=== PATIENT | female | born 1950 | race Caucasian/White ===

== ENCOUNTER → 2018-07-13 14:48 | Outpatient (CLI) | payer BC, MEDICARE, SELFPAY ==
--- NOTE | 2018-07-13 15:01 | XR_ITS ---
XR DEXA axial skeleton HISTORY: ITS.REASON: OSTEOPAROSIS ORDERING PHYSICIAN: Lacy Owens PATIENT AGE: 67 years COMPARISON: 06/29/2014 FINDINGS: The BMD measured at the Right femoral neck is 0.734 g/cm squared with a T score of -2.2. This is considered Osteopenic according to the World Health Organization criteria. Fracture risk is Moderate. Treatment is advised. L1 L4 density has a T score of -1.5. The density has increased by 3.7%. The mean density of the hip has decreased by 1.8% IMPRESSION: Osteopenia with moderate fracture risk. Suggest treatment and follow-up exam July 2020
== END ==
PROVIDERS: PCP Internal Medicine Adolescent Medicine; Visit Provider Nurse Practitioner Family
DX: M81.0 Age-related osteoporosis without current pathological fracture (principal)
CPT/HCPCS: 77080

== ENCOUNTER 2019-08-16 10:30 | Inpatient (IN) ==
--- NOTE | 2019-08-16 11:01 | Emergency Department Note ---
ED Disposition Clinical Impression: Hx of fall Injury of right thigh Qualifiers: Encounter type: initial encounter Qualified Code(s): S79.921A - Unspecified injury of right thigh, initial encounter Intertrochanteric fracture of right femur Qualifiers: Encounter type: initial encounter Fracture type: closed Fracture alignment: displaced Qualified Code(s): S72.141A - Displaced intertrochanteric fracture of right femur, initial encounter for closed fracture Disposition: Admitted As Inpatient Condition on Discharge: Fair Referrals: Gabriel Dodson MD [Primary Care Provider] - Time of Disposition: 12:28 - Critical Care Critical Care Time: Yes Attestation: On 08/16/19, the high probability of a clinically significant, sudden or life threatening deterioration of the following system(s) required my full and direct attention, intervention and personal management. The time I documented below is in addition to time spent performing reported procedures but includes the f ollowing listed in this critical care notation. Total Critical Care Time: 30 Vital system(s) involved:: Shock (Hemorrhage) My critical care processes included: Assessment & monitoring of V/S, Initial and Re-exams, Data Review/Interpretation, Coordinating Care, Medication Orders and management, Documentation Medical Decision Making - Sanchez Inquiry Pt receiving controlled substance: No Vital Signs: 08/16/19 10:30 08/16/19 11:00 08/16/19 12:15 Temperature 97.9 F 98.5 F Temperature Source Oral Oral Pulse Rate [Right Radial] 84 78 91 H Respiratory Rate 18 20 Blood Pressure [Right Arm] 161/78 H 149/71 H 144/60 H Blood Pressure Mean [Right Arm] 105 97 88 Blood Pressure Source [Right Arm] Automatic Cuff Automatic Cuff Blood Pressure Position [Right Arm] Sitting Sitting 02 Sat by Pulse Oximetry 98 99 98 Oxygen Delivery Method Room Air Room Air - Lab Data Lab results reviewed: Yes: I reviewed the patient's lab results. Orders (Tests/Meds): ED MEDICATIONS Discontinued Medications Generic Name Dose Route Start Last Admin Trade Name Freq PRN Reason Stop Dose Admin Hydromorphone HCl 1 mg 08/16/19 11:36 08/16/19 11:45 Dilaudid 2mg/Ml Syringe IV 08/16/19 11:37 1 mg ONCE ONE Administration Morphine Sulfate 2 mg 08/16/19 10:38 08/16/19 10:41 Morphine 2mg/Ml Syringe IV 08/16/19 10:39 2 mg ONCE ONE Administration Ondansetron HCl 4 mg 08/16/19 10:39 08/16/19 10:41 Zofran 4mg/2ml Vial IV 08/16/19 10:40 4 mg ONCE ONE Administration Ondansetron HCl 4 mg 08/16/19 11:36 08/16/19 11:45 Zofran 4mg/2ml Vial IV 08/16/19 11:37 4 mg ONCE ONE Administration ORDERS Category Date Time Status XR femur RT 2V Stat Exams 08/16/19 10:32 Taken XR hip RT 2-3V w/pelvis Stat Exams 08/16/19 10:32 Taken Trop I [Troponin I] Stat Lab 08/16/19 12:05 Received ECG Request by /Felicity Stat Y 08/16/19 11:05 Ordered - Radiology Data #1 Image(s): Hip Image Reviewed: Yes I reviewed the patient's radiology image X-ray of the right hip shows intertrochanteric fracture of the right femur. #2 Image(s): Femur Image Reviewed: Yes I reviewed the patient's radiology image X-ray after right femur shows intertrochanteric fracture with angulation. - Physician Consults Physician Consulted: Dr. Contreras Time: 12:15 Reason -: Orthopedic Eval/Care Comment/Response: Discussed with Dr. Contreras, the orthopedic on-call, regarding the patient and plan to get the patient admitted to the floor under the hospitalist service for possible surgery this afternoon. Advised pt to be NPO today. Additional Consult: Dr. Dodson Time: 12:20 Reason -: Admission Comment/Response: Discussed with Dr. Dodson, the patient's primary care provider, regarding the patient and planned to get the patient admitted to the floor. - Reevaluation(s) Time: 12:00 Reevaluation #1: Patient has been stable throughout the course of stay in the emergency department. Discussed the x-ray findings with the patient. Plan to discuss the case with orthopedic consult for orthopedic surgery and admission. Time: 12:25 Reevaluation #3: Advised patient not to be eating or drinking anything today. Plan to admit the patient to the floor. Fall HPI - General Chief Complaint: Fall Stated Complaint: fall, R thigh pain Time Seen by Provider: 08/16/19 11:01 Mode of Arrival: EMS Limitations: No Limitations Description of Symptoms (Recalled from ER Triage Doc. by RN): Pt was walking across the parking lot at her work when she slipped on ice and fell. Pt reports she landed on her R side. Pt c/o pain in R lateral thigh area. Redness and swelling noted to R lateral thigh area. - History of Present Illness HPI Narrative: Next a 8-year-old female was walking on the parking lot at her workplace when she slipped on the ice and fell on the right side. She hurt her right thigh area. Denies having any head injury. Denies having any neck injury. Denies having any back injury. Denies having any chest pain. Denies having any nausea or vomiting. Denies having any shortness of breath. Denies any loss of consciousness or any other symptoms. MD complaint: fall Onset (ago): hour(s) (2) Fall from: standing Fall witnessed: no Place fall occurred: work Loss of consciousness: none Prolonged down time: no Symptoms prior to fall: none Context: tripped/slipped (slipped on ice.) Location of injury: other (lower extremity on the right) Location of injury - extremities: Right: thigh Severity: severe Severity scale (1-10): 8 Quality: sharp Associated symptoms (after fall): denies - Related Data Home Medications Medication Instructions Recorded Confirmed Amlodipine Besylate [Norvasc 2.5mg 5 mg PO DAILY 08/16/19 08/16/19 tablet] Aspirin [Aspirin 81mg EC Tab] 81 mg PO DAILY 08/16/19 08/16/19 Levothyroxine Sodium 125 mcg PO DAILY 08/16/19 08/16/19 [Levothyroxine 125mcg (0.125mg) Tab] Allergies Allergy/AdvReac Type Severity Reaction Status Date / Time ciprofloxacin [From CIPRO] Allergy Mild Unverified 08/24/17 14:44 erythromycin base Allergy Mild Unverified 08/24/17 14:44 [ERYTHROMYCIN BASE] Sulfa (Sulfonamide Allergy Mild Unverified 08/24/17 14:44 Antibiotics) [SULFA (SULFONAMIDE ANTIBIOTICS)] [facility] History - Hepatitis A Screen Drug use history?: No High risk sexual behaviors?: No History of sexually transmitted infection?: No Currently employed?: No Childcare worker?: No Do you have indoor plumbing?: Yes Do you have electricity?: Yes Attestation statement:: This patient has been screened for Hepatitis A risk factors. Medical History: Denies:: Diabetes Mellitus Type 1, Diabetes Mellitus Type 2 - Social History Alcohol Intake: current Alcohol Intake Frequency:: holidays/special occasions only Occupational Status: employed ROS Obtained: Yes All systems reviewed & no additional complaints Physical Exam - General General appearance: alert, in no apparent distress - Head Head exam: atraumatic, normocephalic, normal inspection - Eye Eye exam: Present: normal appearance, PERRL, EOMI - ENT ENT exam: Present: normal exam, normal oropharynx, mucous membranes moist, normal external ear exam - Neck Neck exam: Present: normal inspection, full ROM, trachea midline - Chest Chest inspection: Present: normal inspection, symmetric chest wall rise. Absent: tenderness - Respiratory Respiratory exam: Present: normal lung sounds bilaterally. Absent: respiratory distress - Cardiovascular Cardiovascular exam: Present: regular rate, normal rhythm. Absent: JVD - Abdominal Exam Abdominal exam: Present: soft, normal bowel sounds. Absent: distention, tenderness, guarding - Extremities Exam Extremities exam: Present: normal inspection, full ROM, normal capillary refill. Absent: calf tenderness - Expanded Lower Extremity Exam Right Hip/Pelvis exam: Present: tenderness (Tenderness on the lower part of the right hip.) Upper leg exam: Present: tenderness (Numbness on the right lateral aspect of the hip and the thigh area.), ecchymosis (Mild ecchymosis on the lateral aspect of the right thigh on the midshaft area.) Lower leg exam: Present: normal inspection, full ROM. Absent: tenderness, swelling Ankle exam: Present: normal inspection, full ROM. Absent: tenderness, swelling Foot/toe exam: Present: normal inspection, full ROM. Absent: tenderness, swelling - Back Exam Back exam: Present: normal inspection. Absent: tenderness - Neurological Exam Neurological exam: Present: alert, oriented X3, CN II-XII intact - Psychiatric Psychiatric exam: Present: normal affect, normal mood - Skin Skin exam: Present: warm, dry, intact, normal color
[2019-08-16 12:32] LABS: Basophils % 0.2 % (0.1-2.0); Eosinophils % 0.3 % (0.1-12.0); Hematocrit 41.1 % (37.0-47.0); Hemoglobin 13.7 g/dL (12.2-16.2); Lymphocytes # 0.8 K/mm3 (0.7-4.5); Lymphocytes % 7.5 % (10-50); Mean Corpuscular HGB Conc 33.5 g/dL (31.8-35.4); Mean Corpuscular Volume 88.9 fl (81-99); Mean Platelet Volume 8.9 fl (7.4-10.4); Monocytes # 0.2 K/mm3 (0.1-1.0); Monocytes % 2.3 % (1.7-9.3); Neutrophils # 9.5 K/mm3 (1.8-7.8); Neutrophils % 89.7 % (37.0-80.0); Platelet Count 193 K/mm3 (142-424); Red Blood Count 4.62 M/mm3 (4.20-5.40); Red Cell Distribution Width 12.9 % (11.5-17.5); White Blood Count 10.6 K/mm3 (4.8-10.8)
[2019-08-16 12:38] LABS: Albumin Level 3.7 gm/dL (3.4-5.0); Albumin/Globulin Ratio 1.3 (1.1-1.8); Anion Gap 13.8 mEq/L (5-15); Bilirubin,Total 0.3 mg/dL (0.2-1.0); Calcium 8.3 mg/dL (8.5-10.1); Globulin 2.9 gm/dl (1.3-3.2); Total Protein,Serum 6.6 gm/dL (6.4-8.2)
[2019-08-16 12:41] LABS: Eosinophils % 1 % (0-3); Lymphocytes % 11 % (10-50); Monocytes % 3 % (2-9); Neutrophils % 85 % (42-76); RBC Morphology Normal; Total Cells Counted 100
[2019-08-16 13:03] LABS: Microscopic, Urine URINE MICROSCOPIC (MICROSCOPIC)
[2019-08-16 13:04] LABS: Appearance,Urine CLEAR (Clear); Bilirubin,Urine Negative (Negative); Blood, Urine Negative (Negative); Color,Urine YELLOW (Yellow); Glucose,Urine (UA) Negative (Negative); Ketones,Urine Negative (Negative); Leukocyte Esterase,Urine Negative (Negative); PH,Urine 7.5 (5.0-8.5); Protein,Urine Negative (Negative); Specific Gravity, Urine 1.015 (1.005-1.030); Urobilinogen,Urine 0.2 EU/dl (0.2)
[2019-08-16 13:08] LABS: RBC,Urine Occasional #/hpf (0-3); Squamous Epithelial Cell,Urine Occasional #/hpf (0-5)
--- NOTE | 2019-08-16 13:36 | History & Physical Report ---
*Admission Date: 08/16/19 *Chief complaint: Fall with right hip fracture *History of present illness: 68-year-old healthy white female with essential hypertension-normally well controlled-who was outside her workplace today trimming some bushes and slipped on a patch of ice and fell down, striking her right hip, unable to walk, significant pain. Brought to the emergency department where x-rays demonstrated trochanteric fracture. Admitted to hospital for surgical intervention. Denies palpitations, dyspnea, chest pain. Denies recent functional decline issues. Reports mechanical fall, no issues of syncope or presyncope [facility] History I have reviewed the patient's past medical history: Yes Medical History: Reports:: Hypertension Denies:: Diabetes Mellitus Type 1, Diabetes Mellitus Type 2 *Have you ever received a pneumonia vaccine?: No *Have you received a flu vaccine this season?: Yes Other Medical History: Reports: Hypothyroidism - *Social History Educational Level: Completed Graduate School Smoking Status: Never smoker Alcohol Intake: current Alcohol Intake Frequency:: holidays/special occasions only *Occupational Status:: employed *Travel in the last 8 weeks: None Family Hx:: No significant family history Review of Systems - Review of Systems Review of systems:: pertinent systems reviewed and negative unless documented below Plan pain from fracture patient denies bony pain or arthritis pain Otherwise 10 point review of systems negative. Meds Home Medications Medication Instructions Recorded Confirmed Type Amlodipine Besylate [Norvasc 2.5mg 5 mg PO DAILY 08/16/19 08/16/19 History tablet] Aspirin [Aspirin 81mg EC Tab] 81 mg PO DAILY 08/16/19 08/16/19 History Levothyroxine Sodium 125 mcg PO DAILY 08/16/19 08/16/19 History [Levothyroxine 125mcg (0.125mg) Tab] Allergies Allergy/AdvReac Type Severity Reaction Status Date / Time ciprofloxacin [From CIPRO] Allergy Mild Verified 08/16/19 12:49 erythromycin base Allergy Mild Verified 08/16/19 12:49 [ERYTHROMYCIN BASE] Sulfa (Sulfonamide Allergy Mild Verified 08/16/19 12:49 Antibiotics) [SULFA (SULFONAMIDE ANTIBIOTICS)] Exam Vital signs and Labs for Last 24 Hours: Temp Pulse Resp BP Pulse Ox 98.2 F 88 18 149/77 H 98 08/16/19 13:10 08/16/19 13:10 08/16/19 13:10 08/16/19 13:10 08/16/19 12:15 Laboratory Results - last 24 hr 08/16/19 12:05: Troponin I < 0.02 08/16/19 12:05: WBC 10.6, RBC 4.62, Hgb 13.7, Hct 41.1, MCV 88.9, MCH 29.8, MCHC 33.5, RDW 12.9, Plt Count 193, MPV 8.9, Neut % (Auto) 89.7 H, Lymph % (Auto) 7.5 L, [place] % (Auto) 2.3, Eos % (Auto) 0.3, Baso % (Auto) 0.2, Neut # (Auto) 9.5 H, Lymph # (Auto) 0.8, [place] # (Auto) 0.2, Eos # (Auto) 0.0, Baso # (Auto) 0.0, Total Counted 100, Neutrophils % (Manual) 85 H, Lymphocytes % (Manual) 11, Monocytes % (Manual) 3, Eosinophils % (Manual) 1, Platelet Estimate Normal, RBC Morphology Normal 08/16/19 12:05: Sodium 141, Potassium 3.8, Chloride 106, Carbon Dioxide 25, Anion Gap 13.8, BUN 26 H, Creatinine 0.85, Estimated Creat Clear 65, Estimated GFR 67, Est GFR ( Amer) 81, Glucose 131 H, Calcium 8.3 L, Total Bilirubin 0.3, AST 14 L, ALT 22, Alkaline Phosphatase 52, Total Protein 6.6, Albumin 3.7, Globulin 2.9, Albumin/Globulin Ratio 1.3 08/16/19 13:00: Urine Color Yellow, Urine Appearance Clear, Urine pH 7.5, Ur Specific [place] 1.015, Urine Protein Negative, Urine Glucose (UA) Negative, Urine Ketones Negative, Urine Blood Negative, Urine Nitrate Negative, Urine Bilirubin Negative, Urine Urobilinogen 0.2, Ur Leukocyte Esterase Negative, Urine RBC Occasional, Urine WBC None, Ur Squamous Epith Cells Occasional, Urine Bacteria None I & O for Last 24 hours: Intake & Output 08/14/19 08/15/19 08/16/19 08/17/19 11:59 11:59 11:59 11:59 Weight 165 lb - Constitutional no acute distress, average body habitus - *Routine HEENT Exam Head: Present: normocephalic Eye: Present: EOMI, PERRL ENT: Present: mucous membranes moist - *Routine Neck Exam Present: supple. Absent: lymphadenopathy - *Routine Respiratory Exam Present: CTA bilaterally - *Routine Cardiovascular Exam Present: RRR - *Routine Abdominal Exam Present: soft, normoactive bowel sounds. Absent: tenderness - *Routine Extremities Exam Absent: cyanosis, clubbing, edema Comments: Right leg foreshortened and rotated consistent with injury pattern - *Routine Skin Exam Present: warm. Absent: rash - *Routine Neurological Exam Present: alert, oriented X3, CN II-XII intact Assessment and Plan (1) Hypertension, essential Current visit: Yes Status: Acute Category: Medical Code(s): I10 - [place] tial (primary) hypertension Good control, no contraindication to surgery. (2) Hypothyroidism Current visit: Yes Status: Acute Category: Medical Code(s): E03.9 - Hypothyroidism, unspecified Euthyroid (3) Hx of fall Current visit: Yes Status: Acute Category: Medical Code(s): Z91.81 - History of falling (4) Intertrochanteric fracture of right femur Current visit: Yes Status: Acute Qualifiers: Encounter type: initial encounter Fracture type: closed Fracture alignment: displaced Qualified Code(s): S72.141A - Displaced intertrochanteric fracture of right femur, initial encounter for closed fracture Category: Medical Code(s): S72.141A - Displaced intertrochanteric fracture of right femur, initial encounter for closed fracture Agree with operative management. No contraindications to surgery. Low risk status.
--- NOTE | 2019-08-16 14:08 | Progress Note ---
[facility] Anesthesia Checklist - Patient Identification Patient Identification: Arm Band, Verbal (Name & ) - Structural Data Admitted From: Inpatient Planned Operative Procedure/s: gamma nail Consent for Planned Operative Procedure(s) Verified: Yes Verified Documents: History and Physical - NPO Status Verified Time NPO: 08:00 - Chart Verification Results Verified: CBC, BMP - Additional verifications Patient : No Anesthesia Reactions: No Hx Blood Transfusions: No Blood Transfusion Reaction: No Cephalosporin Allergy: No Previous Colonoscopy: No - Cardiovascular Assessment Heart Sounds: S1 & S2 Pulse Strength: Baseline Pulse Rhythm: Regular Peripheral Edema: No - Airway Assessment C-Spine Mobility Assessed: Yes TMJ Mobility Assessed: Yes Dentition: Good Dentition - Neurological Assessment Level of Consciousness: Awake, Alert, Appropriate Hx Seizures: No Numbness or tingling in extremities: No - Anesthesia Plan Anesthesia Risk discussed: Yes Anesthesia Plan: Verified ASA Class: II Anesthesia Type: Spinal [facility] History I have reviewed the patient's past medical history: Yes Medical History: Reports:: Hypertension Denies:: Diabetes Mellitus Type 1, Diabetes Mellitus Type 2 *Have you ever received a pneumonia vaccine?: No *Have you received a flu vaccine this season?: Yes Other Medical History: Reports: Hypothyroidism Anesthesia experience/problems:: none - *Social History Educational Level: Completed Graduate School Smoking Status: Never smoker Alcohol Intake: current Alcohol Intake Frequency:: holidays/special occasions only Substance Use Type: other *Occupational Status:: employed *Travel in the last 8 weeks: None Family Hx:: No significant family history
--- NOTE | 2019-08-16 14:20 | Consult Report ---
*Admission Date: 08/16/19 *Reason for consult:: Intertrochanteric fracture, right femur *History of present illness: Seen in the ER for orthopedic consultation; patient's present at the bedside. Patient is a 68-year-old relatively healthy healthy white female with history of well-controlled hypertension, hypothyroidism and osteopenia was brought to the emergency department with history of right hip injury. Patient says she fell after slipping on a patch of ice while walking in the parking lot at her workplace. Following the injury she had severe pain over the right proximal thigh and could not get up and walk. Evaluation in the ER including x-rays demonstrated a comminuted and displaced intertrochanteric fracture of the right proximal femur. Patient is being admitted to hospital for further management. Patient denies any dizziness, headache, chest or neck pain. She denies loss of consciousness, chest pain and shortness of breath. She reports no other injuries. Normally she is mobile and independent and does not use any walking aids. She says she was diagnosed with osteopenia in the past and is on treatment for osteoporosis. She lives with her . Review of Systems - Review of Systems Review of systems:: pertinent systems reviewed and negative unless documented below - Constitutional Denies anorexia, Denies fever(s), Denies headache(s) - Eyes Denies blurry vision, Denies change in vision - ENT Denies abnormal hearing, Denies difficulty swallowing - *Cardiovascular Denies chest pain, Denies shortness of breath - *Respiratory Denies cough, Denies shortness of breath - *Gastrointestinal Denies abdominal pain, Denies change in bowel habits - *Musculoskeletal Reports joint pain, Reports limited joint movement - *Neurologic Denies abnormal movements, Denies abnormal speech, Denies seizure-like activity, Denies dizziness, Denies frequent falls, Denies lack of coordination [facility] History I have reviewed the patient's past medical history: Yes Medical History: Reports:: Hypertension Denies:: Diabetes Mellitus Type 1, Diabetes Mellitus Type 2 *Have you ever received a pneumonia vaccine?: No *Have you received a flu vaccine this season?: Yes Other Medical History: Reports: Hypothyroidism - *Social History Educational Level: Completed Graduate School Smoking Status: Never smoker Alcohol Intake: current Alcohol Intake Frequency:: holidays/special occasions only *Occupational Status:: employed *Travel in the last 8 weeks: None Family Hx:: No significant family history Meds Home Medications Medication Instructions Recorded Confirmed Type Alendronate Sodium 70 mg PO WEEKLY 08/16/19 08/16/19 History Amlodipine Besylate [Norvasc 2.5mg 5 mg PO DAILY 08/16/19 08/16/19 History tablet] Aspirin [Aspirin 81mg EC Tab] 81 mg PO DAILY 08/16/19 08/16/19 History Calcium Carb, Citrate/Vit D3 1 each PO DAILY 08/16/19 08/16/19 History [Calcium + D3 ER Tablet] Levothyroxine Sodium 125 mcg PO DAILY 08/16/19 08/16/19 History [Levothyroxine 125mcg (0.125mg) Tab] Lifitegrast [Xiidra] 1 each OP BID 08/16/19 08/16/19 History Allergies Allergy/AdvReac Type Severity Reaction Status Date / Time ciprofloxacin [From CIPRO] Allergy Mild Verified 08/16/19 12:49 erythromycin base Allergy Mild Verified 08/16/19 12:49 [ERYTHROMYCIN BASE] Sulfa (Sulfonamide Allergy Mild Verified 08/16/19 12:49 Antibiotics) [SULFA (SULFONAMIDE ANTIBIOTICS)] Exam Vital signs and Labs for Last 24 Hours: Temp Pulse Resp BP Pulse Ox 98.2 F 88 18 149/77 H 98 08/16/19 13:10 08/16/19 13:10 08/16/19 13:10 08/16/19 13:10 08/16/19 12:15 Laboratory Results - last 24 hr 08/16/19 12:05: Troponin I < 0.02 08/16/19 12:05: WBC 10.6, RBC 4.62, Hgb 13.7, Hct 41.1, MCV 88.9, MCH 29.8, MCHC 33.5, RDW 12.9, Plt Count 193, MPV 8.9, Neut % (Auto) 89.7 H, Lymph % (Auto) 7.5 L, [place] % (Auto) 2.3, Eos % (Auto) 0.3, Baso % (Auto) 0.2, Neut # (Auto) 9.5 H, Lymph # (Auto) 0.8, [place] # (Auto) 0.2, Eos # (Auto) 0.0, Baso # (Auto) 0.0, Total Counted 100, Neutrophils % (Manual) 85 H, Lymphocytes % (Manual) 11, Monocytes % (Manual) 3, Eosinophils % (Manual) 1, Platelet Estimate Normal, RBC Morphology Normal 08/16/19 12:05: Sodium 141, Potassium 3.8, Chloride 106, Carbon Dioxide 25, Anion Gap 13.8, BUN 26 H, Creatinine 0.85, Estimated Creat Clear 65, Estimated GFR 67, Est GFR ( Amer) 81, Glucose 131 H, Calcium 8.3 L, Total Bilirubin 0.3, AST 14 L, ALT 22, Alkaline Phosphatase 52, Total Protein 6.6, Albumin 3.7, Globulin 2.9, Albumin/Globulin Ratio 1.3 08/16/19 13:00: Urine Color Yellow, Urine Appearance Clear, Urine pH 7.5, Ur Specific [place] 1.015, Urine Protein Negative, Urine Glucose (UA) Negative, Urine Ketones Negative, Urine Blood Negative, Urine Nitrate Negative, Urine Bilirubin Negative, Urine Urobilinogen 0.2, Ur Leukocyte Esterase Negative, Urine RBC Occasional, Urine WBC None, Ur Squamous Epith Cells Occasional, Urine Bacteria None I & O for Last 24 hours: Intake & Output 08/14/19 08/15/19 08/16/19 08/17/19 11:59 11:59 11:59 11:59 Weight 165 lb - Constitutional no acute distress, cooperative - *Routine HEENT Exam Head: Present: normocephalic, atraumatic Eye: Present: EOMI ENT: Present: mucous membranes moist - *Routine Neck Exam Present: supple, full ROM, trachea midline. Absent: lymphadenopathy - *Routine Respiratory Exam Present: CTA bilaterally. Absent: respiratory distress - *Routine Cardiovascular Exam Present: RRR, Normal S1, Normal S2 - *Routine Abdominal Exam Present: soft, normoactive bowel sounds. Absent: organomegaly - *Routine Extremities Exam Comments: On examination of her lower extremities, there is shortening of the RIGHT leg and the foot is externally rotated. On examination of the RIGHT hip the skin is normal. No rashes or lesions noted. She is tender over the RIGHT hip. Any attempted movements of the RIGHT hip are painful. Thigh and calf are soft and nontender. Dorsalis pedis and posterior tibial pulses are palpable 2+ bilaterally. Sensation is grossly intact. She has good range of foot, ankle and toe movements. Imaging: X-rays of her pelvis AP view, RIGHT hip AP and lateral views and RIGHT femur AP and lateral views are showing a comminuted, displaced, unstable intertrochanteric fracture of the RIGHT proximal femur. Hip joint is fairly well-preserved. Her distal femur appears normal. - Routine Back/Spine/Pelvis Exam Back/Spine: Absent: CVA tenderness, vertebral tenderness - *Routine Skin Exam Present: intact, warm, normal turgor - *Routine Neurological Exam Present: alert, oriented X3, CN II-XII intact - Routine Psychiatric Exam Present: normal affect, cooperative Results - Labs Result Diagrams: 08/16/19 12:05 08/16/19 12:05 Labs: Abnormal lab results 08/16/19 08/16/19 Range/Units 12:05 12:05 Neut % (Auto) 89.7 H (37.0-80.0) % Lymph % (Auto) 7.5 L (10-50) % Neut # (Auto) 9.5 H (1.8-7.8) K/mm3 Neutrophils % (Manual) 85 H (42-76) % BUN 26 H (7-18) mg/dL Glucose 131 H (74-106) mg/dL Calcium 8.3 L (8.5-10.1) mg/dL AST 14 L (15-37) U/L H & H 08/16/19 Range/Units 12:05 Hgb 13.7 (12.2-16.2) g/dL Hct 41.1 (37.0-47.0) % All other labs normal. - Diagnostic results Hip x-ray: image reviewed Assessment and Plan (1) Hypertension, essential Current visit: Yes Status: Acute Category: Medical Code(s): I10 - Esse ntial (primary) hypertension (2) Hypothyroidism Current visit: Yes Status: Acute Category: Medical Code(s): E03.9 - Hypothyroidism, unspecified (3) Hx of fall Current visit: Yes Status: Acute Category: Medical Code(s): Z91.81 - History of falling (4) Intertrochanteric fracture of right femur Current visit: Yes Status: Acute Qualifiers: Encounter type: initial encounter Fracture type: closed Fracture alignmen t: displaced Qualified Code(s): S72.141A - Displaced intertrochanteric fracture of right femur, initial encounter for closed fracture Category: Medical Code(s): S72.141A - Displaced intertrochanteric fracture of right femur, initial encounter for closed fracture - Assessment and plan all Dx Assessment and Plan for all problems:: I have reviewed the clinical and imaging findings with the patient and her who was with her in the ER. I have discussed the diagnosis, natural history and management options in detail including both nonsurgical and surgical. I have recommended surgical remediation in the form of a femoral nailing (cephalo-medullary nailing). I explained the procedure, risks and benefits, alternatives and the expected postoperative course and outcome. I explained to the patient and her family the type of the fracture and the proposed surgical procedure using copies of the x-rays, pictures from the Internet and drawings. The complications discussed include but are not limited to infection, bleeding, injury to nerves and blood vessels, DVT, PE, screw cut- out/implant failure, loss of fixation, nonunion, malunion/malrotation, osteonec rosis of the femoral head, femoral shaft fracture, painful hardware, heterotopic ossification, stiffness, weakness, incomplete relief of pain, incomplete return of function or motion and the likely need for further surgery in future, and anesthetic/medical complications including heart attack, stroke, transfusion reaction or . We discussed how any of these events can be devastating. I've explained that the patient is at a significant surgical risk due to her age, medical comorbidities and fragility of the bone. Family and patient seemed to understand and accept these risks. We have discussed nonsurgical alternatives as well. The nonoperative management would essentially consist of prolonged bed rest and traction (skeletal/skin) in bed and pain medication and has exceptionally poor outcome. This could result in nonunion and malunion of the fracture and almost certainly, the patient has a very high risk of decubitus ulcers, UTI, respiratory tract infections, DVT/PE and other complications from being bedridden. I have explained to them that the standard of care for this sort of injuries is surgical throughout the country unless the patient is very ill for surgical management. We also discussed the postoperative course including the rehab and physical therapy required. All their questions were answered and they verbalized a good understanding. We will await medical clearance by Dr. De La Garza team. Well also obtain a preoperative anesthetic evaluation. The limb was marked appropriately and initialed by me. I have recommended- Type and screen Continue nothing by mouth Continue IV fluids Analgesia as needed Consent patient for a cephalo-medullary nailing RIGHT hip. Order 2 g of IV Ancef for preoperative prophylaxis to start half an hour before surgery I am planning to take her for surgery at the earliest opportunity today. Continue medical management as per Dr. Dodson. Thank you for the opportunity to take part in the care of this very pleasant patient.
--- NOTE | 2019-08-16 18:33 | Progress Note ---
[facility] Anesthesia Record Part II Discharge Time: 18:55 Destination: Medical Surgical Department PACU nurse assessment reviewed?: Yes Patient Condition:: Good Anesthesia Complications:: None Swallowing reflex intact?: Yes Cyanosis?: No
--- NOTE | 2019-08-16 18:33 | Progress Note ---
[facility] Anesthesia Record Part I Intake, IV Amount: 900 Estimated blood loss (mL): 150 Urine output (mL): 0 (nm) Blood Products used (#): none Blood Pressure: 156/71 SaO2: 95 Pulse Rate: 111 Respiratory Rate: 17 Temperature: 98.4 F Patient is:: Awake, Drowsy, Stable Stable to PACU at:: 18:25
--- NOTE | 2019-08-16 19:13 | Operative Note ---
Date of procedure: 08/16/19 Pre-op Diagnosis:: Closed, comminuted, displaced and unstable intertrochanteric fracture, right femur Post-op Diagnosis:: Same Procedure performed:: Closed reduction and cephalo-medullary nailing for intertrochanteric fracture, right femur Surgeon:: Jones Contreras MD MANAGER ADVANCED:: Skinny Soares Anesthesia: spinal Estimated blood loss (mL): 150 Clinical Note:: Patient is a 68-year-old female who had a mechanical fall sustaining an injury to her RIGHT hip today. Following evaluation in the emergency room where x-ray showed a displaced, comminuted and unstable intertrochanteric fracture of the RIGHT proximal femur, patient was admitted for further management. After evaluating the patient, I have discussed the diagnosis and management options in detail including nonsurgical and surgical, with the patient and her . Prior to the injury patient was active and mobile independently. After a detailed discussion with the patient and her a decision was made to fix the fracture internally with a cephalo-medullary nail. I have discussed the procedure, risks and benefits, postoperative recovery and rehabilitation and the expected outcomes. The complications discussed include but are not limited to DVT, PE, infection, bleeding, injury to nerves and blood vessels, screw cut- out/implant failure, loss of fixation, nonunion, malunion/malrotation, osteonecrosis of the femoral head, femoral shaft fracture, painful hardware, heterotopic ossification, stiffness, weakness, incomplete relief of pain, incomplete return of function or motion and the likely need for further surgery in future, and anesthetic/medical complications including heart attack, stroke, transfusion reaction or . The patient wished to proceed with the surgical remediation. Consent form was reviewed and signed by me. The limb was appropriately marked and initialed by me. Following appropriate preoperative workup and medical clearance, patient is brought to the operating room for surgery. The surgery is indicated to reduce and stabilize the fracture, relieve pain and improve function. Patient understood the risks, agreed to proceed with surgery, signed the consent form and no guarantees or assurances were given or implied. Operative findings:: Comminuted, displaced and unstable intertrochanteric fracture RIGHT proximal femur as noted on the preoperative x-rays. The fracture is well reduced with closed manipulation prior to fixation. Bone quality is good. Operative note:: Following appropriate preoperative workup and medical clearance, patient is brought to the operating room and a spinal anesthesia was administered. Patient was then positioned supine on the fracture table and all the bony prominences were appropriately padded. The RIGHT foot was secured in the footplate and the footplate was attached to the fracture table. The LEFT leg was placed out of the way in a leg valderrama. Under fluoroscopic guidance the fracture was reduced by traction and satisfactory reduction was obtained. The reduction was confirmed on both AP and lateral views. The RIGHT hip and thigh were then prepped and draped in the usual sterile fashion. Administration of prophylactic antibiotics was confirmed with the audience development manager (2 g of IV Ancef was administered). A preprocedure timeout was performed as per the hospital protocol. After marking the level of the greater trochanter on the skin under fluoroscopy, a skin incision was made proximal to the greater trochanter in line with the femoral shaft. The dissection was then carried through the subcutaneous tissue. The tensor fascia muscle was split in line with the fibers. This provided access to the tip of the greater trochanter. Under fluoroscopic guidance a guidewire was placed at the tip of the greater trochanter, the position was confirmed on both fluoroscopic views and advanced into the proximal femur. The proximal segment was then reamed over the guidewire and the guidewire was exchanged for a ball- tipped guidewire which was advanced into the distal femur. The position of the guidewire was confirmed in both AP and lateral views. Then sequential reaming was performed over the guidewire up to 12.5 mm reamer. The required nail length was measured. A 125 degree angle, 11 mm diameter, long (380 mm) RIGHT Hemant Gamma 3 nail was selected. The selected nail was attached to the proximal jig and the nail was then inserted into the femur under fluoroscopic guidance. After seating the nail to the appropriate level, I proceeded to introduce the lag screw. We used the [employer] computer navigation system for placement of the lag screw. The lag screw sheath assembly was placed through the appropriate hole in the jig and locked in place. Then a 1 inch skin incision was made over the lateral thigh at this level. The incision was deepened through soft tissue and the fascia rico and the muscle was split. The trocar was removed and a guide pin was placed into the femoral head under fluoroscopic control. After confirming satisfactory placement of the guidepin in both AP and lateral fluoroscopic views the length was measured. A 100 mm lag screw was then selected. Drilling was performed over the guidewire for the lag screw. The lag screw was then introduced over the guidewire and advanced to an appropriate l evel. The traction was reduced and fracture site compressed. The lag screw was secured in place with the set screw. The guide pin and sheath were then removed. After final seating of the lag screw the tip apex distance was 13 mm. I then proceeded to perform the distal locking through the dynamic hole- we used the [employer] Gamma nail distal locking jig for this. After appropriately lining the drill sleeve and nail under fluoroscopic guidance, the drill sleeve was placed through the dynamic hole and a 1 cm skin incision was made. Through the drill sleeve the 4.3 mm drill was introduced and the drill hole made for the distal locking screw. The screw length was measured and a 5 mm x 50 mm cortical bone screw was introduced through the dynamic locking hole. The distal and proximal jigs were then removed and fluoroscopic screening was performed in both the AP and lateral views. The reduction and fixation were noted to be satisfactory and stable. Fluoroscopic images were obtained and stored digitally. The wounds were washed out with normal saline and hemostasis was obtained with the diathermy cautery. The wounds were then closed in layers with the 1 Vicryl, 2-0 Vicryl and 4-0 Monocryl subcuticular sutures, Dermabond and Steri-Strips to the skin. 60 mL of 0.5 percent Marcaine with epinephrine was injected into the skin and subcutaneous tissue around the incisions for postoperative pain relief. Sterile dressings were applied. The foot was taken out of the foot valderrama and the opposite leg out of the leg valderrama and placed on the table extension. The limb lengths were noted to be equal and there was no rotational malalignment. Dorsalis pedis and posterior tibial pulses were 2+ on both sides. At the end of the procedure, swab, needle and instrument counts were correct according to the scrub team. Patient was then transferred onto the bed. Patient was then transported to the PACU in a stable condition. Patient tolerated the procedure well and there were no immediate complications. Postoperatively patient will receive 3 further doses of prophylactic antibiotics, DVT prophylaxis as per protocol and IV and oral analgesia as needed. Medical management as per Dr. De La Garza team. Patient can be mobilized on the first postoperative day with a walker, weight bearing on the right side as tolerated. Implants: Hemant Gamma 3 long nailing system-125 degree angle, 11 mm diameter, long (380 mm) RIGHT Hemant Gamma 3 nail, 10.5 mm x 100 mm lag screw and 5 mm x 50 mm distal locking screw. (Industry mill representative: Romulo Ernandez from [facility]) Condition: stable Disposition: PACU Specimens:: None Complications:: None
[2019-08-17 06:50] LABS: Basophils % 0.1 % (0.1-2.0); Red Blood Count 3.82 M/mm3 (4.20-5.40)
[2019-08-17 06:57] LABS: Eosinophils % 0.4 % (0.1-12.0); Lymphocytes # 1.1 K/mm3 (0.7-4.5); Lymphocytes % 15.6 % (10-50); Mean Corpuscular HGB Conc 32.6 g/dL (31.8-35.4); Mean Corpuscular Volume 91.9 fl (81-99); Mean Platelet Volume 8.5 fl (7.4-10.4); Monocytes # 0.4 K/mm3 (0.1-1.0); Monocytes % 5.6 % (1.7-9.3); Neutrophils # 5.3 K/mm3 (1.8-7.8); Neutrophils % 78.2 % (37.0-80.0); Platelet Count 182 K/mm3 (142-424); Red Cell Distribution Width 13.2 % (11.5-17.5); White Blood Count 6.7 K/mm3 (4.8-10.8)
[2019-08-17 07:05] LABS: Albumin Level 2.8 gm/dL (3.4-5.0); Albumin/Globulin Ratio 1.1 (1.1-1.8); Anion Gap 11.4 mEq/L (5-15); Bilirubin,Total 0.5 mg/dL (0.2-1.0); Calcium 7.7 mg/dL (8.5-10.1); Globulin 2.5 gm/dl (1.3-3.2); Hemoglobin 11.4 g/dL (12.2-16.2); Total Protein,Serum 5.3 gm/dL (6.4-8.2)
--- NOTE | 2019-08-17 07:41 | Pharmacy Consult Notes ---
[facility] Pharmacy VTE Monitoring - Patient Demographics Admission date: 08/16/19 Report Date: 08/17/19 Time: 07:41 Allergies/Adverse Reactions: Patient Allergies ciprofloxacin [From CIPRO] Allergy (Mild, Verified 08/16/19 12:49) erythromycin base [ERYTHROMYCIN BASE] Allergy (Mild, Verified 08/16/19 12:49) Sulfa (Sulfonamide Antibiotics) [SULFA (SULFONAMIDE ANTIBIOTICS)] Allergy (Mild, Verified 08/16/19 12:49) Height: 1.68 m Weight: 78.5 kg Patient Problems: Current Active Problems Hx of fall (Acute) Injury of right thigh (Acute) Intertrochanteric fracture of right femur (Acute) Hypertension, essential (Acute) Hypothyroidism (Acute) - VTE Risk Labs: VTE Related Lab Results Hgb 11.4 g/dL (12.2-16.2) L D 08/17/19 06:26 Hct 35.0 % (37.0-47.0) L 08/17/19 06:26 Plt Count 182 K/mm3 (142-424) 08/17/19 06:26 BUN 14 mg/dL (7-18) D 08/17/19 06:26 Creatinine 0.73 mg/dL (0.55-1.02) 08/17/19 06:26 Estimated Creat Clear 68 mL/min (50-200) 08/17/19 06:26 VTE Score: 5 VTE Risk Level: Low Risk - Prophylaxis VTE Prophylaxis Ordered?: Yes Types of VTE Prophylaxis: IPCS Thigh High, Pharmacological Location of Applied Device: Left Leg Pharmacologic Type: Enoxaparin - VTE Diagnosis Confirmed Treatment or plan recommended: Continue Current Treatment
--- NOTE | 2019-08-17 10:26 | Electrocardiograph Report ---
APPROVED REPORT Exam: Resting ECG HR:77 bpm ECG Measurements Heart Rate 77 AXES QRSd 78 QRS 47 QT 422 T50 QTc 477 <Conclusion> Undetermined rhythm Otherwise normal ECG Electronically signed by : Gabriel Dodson, 08/17/2019 10:26:31
--- NOTE | 2019-08-17 11:04 | Progress Note ---
Internal Medicine - PN: Subj *Date: 08/17/19 *Time: 08:45 Interval history: Ms. Godoy did well overnight. Tolerating good p.o. intake. Pain well controlled as long she does not move much. Still has Juan in place this morning. Denies nausea, vomiting, chest pain, shortness of breath. Overall doing well Exam Vital signs and Labs for Last 24 Hours: Temp Pulse Resp BP Pulse Ox 98.7 F 89 16 141/60 H 94 L 08/17/19 08:00 08/17/19 08:00 08/17/19 08:00 08/17/19 08:00 08/17/19 08:00 Laboratory Results - last 24 hr 08/16/19 12:05: Troponin I < 0.02 08/16/19 12:05: WBC 10.6, RBC 4.62, Hgb 13.7, Hct 41.1, MCV 88.9, MCH 29.8, MCHC 33.5, RDW 12.9, Plt Count 193, MPV 8.9, Neut % (Auto) 89.7 H, Lymph % (Auto) 7.5 L, Het[place] % (Auto) 2.3, Eos % (Auto) 0.3, Baso % (Auto) 0.2, Neut # (Auto) 9.5 H, Lymph # (Auto) 0.8, Het[place]er # (Auto) 0.2, Eos # (Auto) 0.0, Baso # (Auto) 0.0, Total Counted 100, Neutrophils % (Manual) 85 H, Lymphocytes % (Manual) 11, Monocytes % (Manual) 3, Eosinophils % (Manual) 1, Platelet Estimate Normal, RBC Morphology Normal 08/16/19 12:05: Sodium 141, Potassium 3.8, Chloride 106, Carbon Dioxide 25, Anion Gap 13.8, BUN 26 H, Creatinine 0.85, Estimated Creat Clear 65, Estimated GFR 67, Est GFR ( Amer) 81, Glucose 131 H, Calcium 8.3 L, Total Bilirubin 0.3, AST 14 L, ALT 22, Alkaline Phosphatase 52, Total Protein 6.6, Albumin 3.7, Globulin 2.9, Albumin/Globulin Ratio 1.3 08/16/19 13:00: Urine Color Yellow, Urine Appearance Clear, Urine pH 7.5, Ur Specific [place] 1.015, Urine Protein Negative, Urine Glucose (UA) Negative, Urine Ketones Negative, Urine Blood Negative, Urine Nitrate Negative, Urine Bilirubin Negative, Urine Urobilinogen 0.2, Ur Leukocyte Esterase Negative, Urine RBC Occasional, Urine WBC None, Ur Squamous Epith Cells Occasional, Urine Bacteria None 08/17/19 06:26: WBC 6.7 D, RBC 3.82 L, Hgb 11.4 L D, Hct 35.0 L, MCV 91.9, MCH 29.9, MCHC 32.6, RDW 13.2, Plt Count 182, MPV 8.5, Neut % (Auto) 78.2, Lymph % (Auto) 15.6, [place]ting[place] % (Auto) 5.6, Eos % (Auto) 0.4, Baso % (Auto) 0.1, Neut # (Auto) 5.3, Lymph # (Auto) 1.1, Hettinger # (Auto) 0.4, Eos # (Auto) 0.0, Baso # (Auto) 0.0 08/17/19 06:26: Sodium 142, Potassium 3.4 L, Chloride 107, Carbon Dioxide 27, Anion Gap 11.4, BUN 14 D, Creatinine 0.73, Estimated Creat Clear 68, Estimated GFR 80, Est GFR ( Amer) 96, Glucose 112 H, Calcium 7.7 L, Total Bilirubin 0.5, AST 22 D, ALT 17, Alkaline Phosphatase 41 L, Total Protein 5.3 L, Albumin 2.8 L D, Globulin 2.5, Albumin/Globulin Ratio 1.1 I & O for Last 24 hours: Intake & Output 08/14/19 08/15/19 08/16/19 08/17/19 23:59 23:59 23:59 23:59 Intake Total 900 / 900 1059 / 1059 Output Total 675 / 675 Balance 900 / 900 384 / 384 Weight 74.474 kg 78.5 kg Narrative: - Constitutional no acute distress, average body habitus - *Routine HEENT Exam Head: Present: normocephalic Eye: Present: EOMI, PERRL ENT: Present: mucous membranes moist - *Routine Respiratory Exam Present: CTA bilaterally - *Routine Cardiovascular Exam Present: RRR - *Routine Abdominal Exam Present: soft, normoactive bowel sounds. Absent: tenderness - *Routine Extremities Exam Absent: cyanosis, clubbing, edema, legs equal length. Surgical bandage in place over incision site of right hip. Neurovascularly intact distally in lower extremities. Bandage clean dry and intact. No erythema surrounding incision - *Routine Skin Exam Present: warm. Absent: rash - *Routine Neurological Exam Present: alert, oriented X3, CN II-XII intact Assessment and Plan (1) Hypertension, essential Current visit: Yes Status: Acute Category: Medical Code(s): I10 - Essential (primary) hypertension (2) Hypothyroidism Current visit: Yes Status: Acute Category: Medical Code(s): E03.9 - Hypothyroidism, unspecified (3) Hx of fall Current visit: Yes Status: Acute Category: Medical Code(s): Z91.81 - History of falling (4) Intertrochanteric fracture of right femur Current visit: Yes Status: Acute Qualifiers: Encounter type: initial encounter Fracture type: closed Fracture alignment: displaced Qualified Code(s): S72.141A - Displaced intertrochanteric fracture of right femur, initial encounter for closed fracture Category: Medical Code(s): S72.141A - Displaced intertrochanteric fracture of right femur, initial encounter for closed fracture - Assessment and plan all Dx Assessment and Plan for all problems:: 68-year-old female status post surgical nailing of right hip intertrochanteric fracture. Overall doing well today. Discontinue Juan. Physical therapy and Occupational Therapy to assess patient today. Continue pain control as needed. Tolerating good p.o. intake. We will work on referral for placement options pending PT recs.
--- NOTE | 2019-08-17 16:48 | Progress Note ---
Subjective Date: 08/17/19 Time: 13:00 Principal diagnosis: Intertrochanteric fracture, right femur Interval history: Patient is status post cephalo-medullary nailing, right femur post op day #1. Patient is sitting out in the chair. Says she is doing well and reports no problems. Patient has minimal pain and says it's well-controlled with medication. No history of any nausea or vomiting. No history of any cough, chest pain, shortness of breath or palpitations. Patient says she is eating and drinking well. No history of any distal tingling or numbness. PN: Obj Ex Vital signs: Temp Pulse Resp BP Pulse Ox 98.3 F 84 18 138/58 L 97 08/17/19 12:00 08/17/19 12:00 08/17/19 12:00 08/17/19 12:00 08/17/19 12:00 Narrative: Laboratory Results - last 24 hr 08/17/19 06:26: WBC 6.7 D, RBC 3.82 L, Hgb 11.4 L D, Hct 35.0 L, MCV 91.9, MCH 29.9, MCHC 32.6, RDW 13.2, Plt Count 182, MPV 8.5, Neut % (Auto) 78.2, Lymph % (Auto) 15.6, [place] % (Auto) 5.6, Eos % (Auto) 0.4, Baso % (Auto) 0.1, Neut # (Auto) 5.3, Lymph # (Auto) 1.1, [place] # (Auto) 0.4, Eos # (Auto) 0.0, Baso # (Auto) 0.0 08/17/19 06:26: Sodium 142, Potassium 3.4 L, Chloride 107, Carbon Dioxide 27, Anion Gap 11.4, BUN 14 D, Creatinine 0.73, Estimated Creat Clear 68, Estimated GFR 80, Est GFR ( Amer) 96, Glucose 112 H, Calcium 7.7 L, Total Bilirubin 0.5, AST 22 D, ALT 17, Alkaline Phosphatase 41 L, Total Protein 5.3 L, Albumin 2.8 L D, Globulin 2.5, Albumin/Globulin Ratio 1.1 Exam General appearance: alert, active, awake, no acute distress Cardiovascular: regular rate & rhythm, normal peripheral pulses Respiratory: No respiratory distress noted, speaks in full sentences ABD: soft and non tender Neuro: alert, awake, oriented x 3 Psych: Appropriate mood and affect for her situation Genitourinary: Catheter in situ. On examination of the lower extremities the limb lengths are equal. Thigh and calf are soft and nontender. On examination of the right hip/thigh the dressings are clean, dry and intact. The dressings are changed by me. There is no soakage of the dressings. The surgical incisions look clean and healthy. No evidence of any infection or other complications is noted. Distal pulses are 2+. Distal sensation is intact to light touch throughout. No motor deficits noted distally. - Urinary Catheter Management Juan Cath placed during this visit: Yes Urethral indwelling: Yes Reason for continuing: Surgical procedure Progress Note: A&P (1) Hypertension, essential Status: Acute Current Visit: Yes (2) Hypothyroidism Status: Acute Current Visit: Yes (3) Hx of fall Status: Acute Current Visit: Yes (4) Intertrochanteric fracture of right femur Status: Acute Current Visit: Yes Assessment and Plan for All Diagnoses:: I have reviewed the clinical and operative findings and procedure performed and progress with the patient. Patient is doing well and reports no problems. Patient is mobilizing well weightbearing as tolerated on the right side with the walker and to continue the same. Continue PT/OT and mobilization. Continue DVT prophylaxis. Discontinue IV fluids and discontinue the urinary catheter. Case management consult regarding discharge planning. Recommend DVT prophylaxis for 6 weeks postop- the appropriate agents include Lovenox, Aspirin 325 mg, Xarelto (Rivaroxaban), Eliquis (apixaban) and Coumadin. Follow-up in my office in 2 weeks time with check x-ray. Please feel free to call our office at [phone] for any orthopaedic questions. Continue medical management as per Dr. Dodson.
--- NOTE | 2019-08-18 08:03 | Progress Note ---
Internal Medicine - PN: Subj *Date: 08/18/19 *Time: 08:02 Interval history: Overall patient seems much better. Pain control is good, when oral medication administered. Did well with PT yesterday. No breathing difficulties. No chest pain. Has tolerated diet well. Exam Vital signs and Labs for Last 24 Hours: Temp Pulse Resp BP Pulse Ox 98.6 F 87 16 124/65 94 L 08/18/19 04:00 08/18/19 04:00 08/18/19 04:00 08/18/19 04:00 08/18/19 04:00 I & O for Last 24 hours: Intake & Output 08/15/19 08/16/19 08/17/19 08/18/19 11:59 11:59 11:59 11:59 Intake Total 1958 / 1958 120 / 120 Output Total 675 / 675 600 / 600 Balance 1284 / 1284 -480 / -480 Weight 165 lb 173 lb 1 oz 172 lb 1 oz Narrative: Alert, pleasant. Oriented x3. No JVD. Pulse rate regular. Heart rate regular. Lungs clear. Abdomen soft. No edema in extremities. Able to wiggle toes well. Equal length on legs. Assessment and Plan (1) Hypertension, essential Current visit: Yes Status: Acute Category: Medical Code(s): I10 - Essential (primary) hypertension (2) Hypothyroidism Current visit: Yes Status: Acute Category: Medical Code(s): E03.9 - Hypothyroidism, unspecified (3) Hx of fall Current visit: Yes Status: Acute Category: Medical Code(s): Z91.81 - History of falling (4) Intertrochanteric fracture of right femur Current visit: Yes Status: Acute Qualifiers: Encounter type: initial encounter Fracture type: closed Fracture a lignment: displaced Qualified Code(s): S72.141A - Displaced intertrochanteric fracture of right femur, initial encounter for closed fracture Category: Medical Code(s): S72.141A - Displaced intertrochanteric fracture of right femur, initial encounter for closed fracture - Assessment and plan all Dx Assessment and Plan for all problems:: Medical conditions well controlled. Given severity of fracture will need ongoing inpatient rehab.
--- NOTE | 2019-08-18 15:49 | Progress Note ---
Subjective Date: 08/18/19 Time: 12:30 Principal diagnosis: Intertrochanteric fracture, right femur Interval history: The patient is doing well today, reports pain in the R hip that is tolerable and well-controlled with pain medication. Denies dizziness/lightheadedness, chest pain, SOA, numbness/tingling in the RLE. She is doing well with physical therapy; plan is to continue rehab in a swing bed. PN: Obj Ex Vital signs: Temp Pulse Resp BP Pulse Ox 98.3 F 83 20 152/62 H 96 08/18/19 08:00 08/18/19 08:00 08/18/19 08:00 08/18/19 08:00 08/18/19 08:00 - Constitutional no acute distress - Routine Extremities Exam Comments: R hip dressings c/d/i, no strikethrough no ecchymosis, erythema or tenderness R hip; no active drainage +DF/PF/EHL RLE SILT distally RLE in all distributions R calf soft, non-tender - Urinary Catheter Management Juan Cath placed during this visit: no Urethral indwelling: Yes Progress Note: A&P (1) Hypertension, essential Status: Acute Current Visit: Yes (2) Hypothyroidism Status: Acute Current Visit: Yes (3) Hx of fall Status: Acute Current Visit: Yes (4) Intertrochanteric fracture of right femur Status: Acute Current Visit: Yes Assessment and Plan for All Diagnoses:: 68yo F POD #2 s/p IMN R femur for IT fx -- change dressing daily; ok to shower starting tomorrow, with dressings off, but apply clean dressing after shower -- WBAT RLE, continue PT/OT -- pain control -- DVT prophy -- continue SCDs, IS -- dispo: swing bed; f/u with Dr. Contreras at 2 weeks post-op
--- NOTE | 2019-08-19 08:48 | Progress Note ---
Internal Medicine - PN: Subj *Date: 08/19/19 *Time: 08:47 Interval history: Overall feels good, no pain except when she moves. Tolerating p.o. pain medicine well. Does get a little dizzy when she first ends up in the morning. Exam Vital signs and Labs for Last 24 Hours: Temp Pulse Resp BP Pulse Ox 98.3 F 81 16 145/49 H 93 L 08/19/19 08:00 08/19/19 08:00 08/19/19 08:00 08/19/19 08:00 08/19/19 08:00 I & O for Last 24 hours: Intake & Output 08/16/19 08/17/19 08/18/19 08/19/19 11:59 11:59 11:59 11:59 Intake Total 1959 / 1959 480 / 480 480 / 480 Output Total 675 / 675 600 / 600 Balance 1284 / 1284 -120 / -120 480 / 480 Weight 165 lb 173 lb 1 oz 172 lb 1 oz 167 lb Narrative: Pain with flexion or abduction of the right hip. Otherwise in no pain. Cardiovascular exam unremarkable, ENT exam clear. Neurologic exam clear. Abdomen soft nontender. No edema or clubbing in the feet, moves toes well. Good distal pulses. Assessment and Plan (1) Hypertension, essential Current visit: Yes Status: Acute Category: Medical Code(s): I10 - Essential (primary) hypertension (2) Hypothyroidism Current visit: Yes Status: Acute Category: Medical Code(s): E03.9 - Hypothyroidism, unspecified (3) Hx of fall Current visit: Yes Status: Acute Category: Medical Code(s): Z91.81 - History of falling (4) Intertrochanteric fracture of right femur Current visit: Yes Status: Acute Qualifiers: Encounter type: initial encounter Fracture type: closed Fracture alignment: displaced Qualified Code(s): S72.141A - Displaced intertrochanteric fracture of right femur, initial encounter for closed fracture Category: Medical Code(s): S72.141A - Displaced intertrochanteric fracture of right femur, initial encounter for closed fracture - Assessment and plan all Dx Assessment and Plan for all problems:: Complex hip fracture with complicated repair. Continues to require inpatient management for pain, PT evaluation. Medical problems are stable.
--- NOTE | 2019-08-20 08:33 | Progress Note ---
Internal Medicine - PN: Subj *Date: 08/20/19 *Time: 08:32 Interval history: Patient is doing well with physical therapy, continues to make progress. Does report significant nausea with hydrocodone pain medication. Wonders about taking Advil instead. Exam Vital signs and Labs for Last 24 Hours: Temp Pulse Resp BP Pulse Ox 98.4 F 85 16 149/69 H 95 08/20/19 04:00 08/20/19 04:00 08/20/19 08:10 08/20/19 04:00 08/20/19 06:20 I & O for Last 24 hours: Intake & Output 08/17/19 08/18/19 08/19/19 08/20/19 11:59 11:59 11:59 11:59 Intake Total 1959 / 1959 480 / 480 720 / 720 400 / 400 Output Total 675 / 675 600 / 600 300 / 300 1500 / 1500 Balance 1284 / 1284 -120 / -120 420 / 420 -1100 / -1100 Weight 173 lb 1 oz 172 lb 1 oz 167 lb 172 lb 4 oz Narrative: Alert, oriented x3. Heart rate regular. Lungs clear. Abdomen soft. ENT exam negative. Neurologic exam normal. Distal extremities warm and well-perfused. Assessment and Plan (1) Hypertension, essential Current visit: Yes Status: Acute Category: Medical Code(s): I10 - Essential (primary) hypertension (2) Hypothyroidism Current visit: Yes Status: Acute Category: Medical Code(s): E03.9 - Hypothyroidism, unspecified (3) Hx of fall Current visit: Yes Status: Acute Category: Medical Code(s): Z91.81 - History of falling (4) Intertrochanteric fracture of right femur Current visit: Yes Status: Acute Qualifiers: Encounter type: initial encounter Fracture type: closed Fracture alignment: displaced Qualified Code(s): S72.141A - Displaced intertrochanteric fracture of right femur, initial encounter for closed fracture Category: Medical Code(s): S72.141A - Displaced intertrochanteric fracture of right femur, initial encounter for closed fracture - Assessment and plan all Dx Assessment and Plan for all problems:: Trial of Tylenol with codeine as her pain is improved. Hold on NSAIDs given theoretical fracture healing risk delay
--- NOTE | 2019-08-21 08:46 | Progress Note ---
Internal Medicine - PN: Subj *Date: 08/21/19 *Time: 08:45 Interval history: Overall feels better with switch to Tylenol 3 with less nausea and fairly good pain relief. Continues to have lots of difficulty transferring out of bed. Exam Vital signs and Labs for Last 24 Hours: Temp Pulse Resp BP Pulse Ox 98.7 F 84 18 160/78 H 97 08/21/19 04:00 08/21/19 04:00 08/21/19 04:00 08/21/19 04:00 08/21/19 04:00 I & O for Last 24 hours: Intake & Output 08/18/19 08/19/19 08/20/19 08/21/19 11:59 11:59 11:59 11:59 Intake Total 480 / 480 720 / 720 640 / 640 1320 / 1320 Output Total 600 / 600 300 / 300 1800 / 1800 1300 / 1300 Balance -120 / -120 420 / 420 -1160 / -1160 20 / 20 Weight 172 lb 1 oz 167 lb 172 lb 4 oz 171 lb 1 oz Narrative: See orthopedic notes for musculoskeletal exam. Heart rate regular, lungs clear, abdomen soft, ENT exam clear. Neuro exam negative. Assessment and Plan (1) Hypertension, essential Current visit: Yes Status: Acute Category: Medical Code(s): I10 - Essential (primary) hypertension (2) Hypothyroidism Current visit: Yes Status: Acute Category: Medical Code(s): E03.9 - Hypothyroidism, unspecified (3) Hx of fall Current visit: Yes Status: Acute Category: Medical Code(s): Z91.81 - History of falling (4) Intertrochanteric fracture of right femur Current visit: Yes Status: Acute Qualifiers: Encounter type: initial encounter Fracture type: closed Fracture alignment: displaced Qualified Code(s): S72.141A - Displaced intertrochanteric fracture of right femur, initial encounter for closed fracture Category: Medical Code(s): S72.141A - Displaced intertrochanteric fracture of right femur, initial encounter for closed fracture - Assessment and plan all Dx Assessment and Plan for all problems:: Patient continues to require inpatient management and maximal assistance. Patient would be ideal for swing bed, insurance company for some inexplicable reason states that they need "15 days" to evaluate her swing bed eligibility. This is clearly ridiculous/unbelievable as your average swing bed stay would last less than 15 days. Clearly a case of insurance company unwilling to provide adequate care for the patient.
--- NOTE | 2019-08-21 16:07 | Progress Note ---
Subjective Date: 08/21/19 Time: 14:00 Principal diagnosis: Intertrochanteric fracture, right femur Interval history: Patient is status post cephalo-medullary nailing right femur post op day #5. Patient is lying down in bed and states she is doing well and reports no prob lems. Patient has minimal pain and says it's well-controlled with medication. No history of any nausea or vomiting. No history of any cough, chest pain, shortness of breath or palpitations. Patient says she is eating and drinking well. No history of any distal tingling or numbness. She is waiting for insurance approval for swing bed discharge. PN: Obj Ex Vital signs: Temp Pulse Resp BP Pulse Ox 98.4 F 79 20 128/59 L 99 08/21/19 08:00 08/21/19 08:00 08/21/19 08:00 08/21/19 08:00 08/21/19 08:00 Narrative: Exam General appearance: alert, active, awake, no acute distress Cardiovascular: regular rate & rhythm, normal peripheral pulses Respiratory: No respiratory distress noted, speaks in full sentences ABD: soft and non tender Neuro: alert, awake, oriented x 3 Psych: Appropriate mood and affect for situation On examination of the lower extremities the limb lengths are equal. Thigh and calf are soft. On examination of the right the dressings are clean, dry and intact. I have removed the dressings today and there is no soakage; the incisions are clean dry and healthy and are left open. No evidence of any infection or other complications is noted. Distal pulses are 2+. Distal sensation is intact to light touch throughout. No motor deficits noted distally. - Urinary Catheter Management Juan Cath placed during this visit: no Urethral indwelling: Yes Progress Note: A&P (1) Hypertension, essential Status: Acute Current Visit: Yes (2) Hypothyroidism Status: Acute Current Visit: Yes (3) Hx of fall Status: Acute Current Visit: Yes (4) Intertrochanteric fracture of right femur Status: Acute Current Visit: Yes Assessment and Plan for All Diagnoses:: I have reviewed the clinical findings and progress with the patient. Patient is doing very well and reports no problems. Patient is mobilizing well weightbearing as tolerated on the right side and to continue the same. Continue DVT prophylaxis. Continue PT/OT and mobilization as tolerated. Recommend DVT prophylaxis for 5 weeks postop- the appropriate agents include Lovenox, Aspirin 325 mg, Xarelto (Rivaroxaban), Eliquis (apixaban) and Coumadin. Follow-up in my office in 2 weeks postop with check x-ray. Please feel free to call our office at [phone] for any orthopaedic questions. Medical management as per Dr. Dodson.
--- NOTE | 2019-08-22 08:24 | Progress Note ---
Internal Medicine - PN: Subj *Date: 08/22/19 *Time: 08:23 Interval history: Overall patient's doing well this morning. Did a couple of steps yesterday however was significantly dizzy and required maximal assistance with a near syncopal episode. Blood pressures been good. Otherwise eating well this morning. Exam Vital signs and Labs for Last 24 Hours: Temp Pulse Resp BP Pulse Ox 98.3 F 74 18 139/71 99 08/22/19 04:00 08/22/19 04:00 08/22/19 04:00 08/22/19 04:00 08/22/19 04:00 I & O for Last 24 hours: Intake & Output 08/19/19 08/20/19 08/21/19 08/22/19 11:59 11:59 11:59 11:59 Intake Total 720 / 720 640 / 640 1320 / 1320 480 / 480 Output Total 300 / 300 1800 / 1800 1540 / 1540 1300 / 1300 Balance 420 / 420 -1160 / -1160 -220 / -220 -820 / -820 Weight 167 lb 172 lb 4 oz 171 lb 1 oz 166 lb 7 oz Narrative: Cardiopulmonary exam unchanged, no edema. Alert, oriented. ENT exam unchanged Assessment and Plan (1) Hypertension, essential Current visit: Yes Status: Acute Category: Medical Code(s): I10 - Essential (primary) hypertension (2) Hypothyroidism Current visit: Yes Status: Acute Category: Medical Code(s): E03.9 - Hypothyroidism, unspecified (3) Hx of fall Current visit: Yes Status: Acute Category: Medical Code(s): Z91.81 - History of falling (4) Intertrochanteric fracture of right femur Current visit: Yes Status: Acute Qualifiers: Encounter type: initial encounter Fracture type: closed Fracture alignment: displaced Qualified Code(s): S72.141A - Displaced intertrochanteric fracture of right femur, initial encounter for closed fracture Category: Medical Code(s): S72.141A - Displaced intertrochanteric fracture of right femur, initial encounter for closed fracture - Assessment and plan all Dx Assessment and Plan for all problems:: Significant fracture. Significant rehabilitation needs. Would benefit from swing bed transfer if the bureaucratic inertia of her insurance company would be in any way helpful.
--- NOTE | 2019-08-23 08:32 | Progress Note ---
Internal Medicine - PN: Subj *Date: 08/23/19 *Time: 08:30 Interval history: Overall patient is doing a little better. Less pain, less nausea. Continues to be very unstable with steps Exam Vital signs and Labs for Last 24 Hours: Temp Pulse Resp BP Pulse Ox 98.1 F 78 18 125/62 96 08/23/19 08:00 08/23/19 08:00 08/23/19 08:00 08/23/19 08:00 08/23/19 08:00 I & O for Last 24 hours: Intake & Output 08/20/19 08/21/19 08/22/19 08/23/19 11:59 11:59 11:59 11:59 Intake Total 640 / 640 1320 / 1320 720 / 720 1080 / 1080 Output Total 1800 / 1800 1540 / 1540 1300 / 1300 900 / 900 Balance -1160 / -1160 -220 / -220 -580 / -580 180 / 180 Weight 172 lb 4 oz 171 lb 1 oz 166 lb 7 oz 167 lb 1 oz Narrative: Patient is pleasant, talkative. Heart rate regular, lungs clear. Abdomen soft and nontender. Oropharynx clear. No edema. Assessment and Plan (1) Hypertension, essential Current visit: Yes Status: Acute Category: Medical Code(s): I10 - Essential (primary) hypertension (2) Hypothyroidism Current visit: Yes Status: Acute Category: Medical Code(s): E03.9 - Hypothyroidism, unspecified (3) Hx of fall Current visit: Yes Status: Acute Category: Medical Code(s): Z91.81 - History of falling (4) Intertrochanteric fracture of right femur Current visit: Yes Status: Acute Qualifiers: Encounter type: initial encounter Fracture type: closed Fracture alignment: displaced Qualified Code(s): S72.141A - Displaced intertrochanteric fracture of right femur, initial encounter for closed fracture Category: Medical Code(s): S72.141A - Displaced intertrochanteric fracture of right femur, initial encounter for closed fracture - Assessment and plan all Dx Assessment and Plan for all problems:: Overall doing well. No changes in plan. Continues inpatient PT
--- NOTE | 2019-08-23 13:40 | Swing Bed Reports ---
*Admission Date: 08/16/19 *Reason for consult:: s/p hip fx *History of present illness: Seen in the ER for orthopedic consultation; patient's present at the bedside. Patient is a 68-year-old relatively healthy healthy white female with history of well-controlled hypertension, hypothyroidism and osteopenia was brought to the emergency department with history of right hip injury. Patient says she fell after slipping on a patch of ice while walking in the parking lot at her workplace. Following the injury she had severe pain over the right proximal thigh and could not get up and walk. Evaluation in the ER including x-rays demonstrated a comminuted and displaced intertrochanteric fracture of the right proximal femur. Patient is being admitted to hospital for further management. Patient denies any dizziness, headache, chest or neck pain. She denies loss of consciousness, chest pain and shortness of breath. She reports no other injuries. Normally she is mobile and independent and does not use any walking aids. She says she was diagnosed with osteopenia in the past and is on treatment for osteoporosis. She lives with her . Hospital Course Hospital Course: Patient underwent uncomplicated ORIF of right hip. Did well. Pain was control led initially with morphine and then transitioning to hydrocodone therapy then to Tylenol 3 because of nausea. Patient did well, home medications were reinstated. No cardiopulmonary problems. Because of ongoing need for rehabilitation secondary to the severity of the fracture she was moved into the swing bed today. Exam Vital signs and Labs for Last 24 Hours: Temp Pulse Resp BP Pulse Ox 98.1 F 78 18 125/62 96 08/23/19 08:00 08/23/19 08:00 08/23/19 08:00 08/23/19 08:00 08/23/19 08:00 I & O for Last 24 hours: Intake & Output 08/21/19 08/22/19 08/23/19 08/24/19 11:59 11:59 11:59 11:59 Intake Total 1320 / 1320 720 / 720 1080 / 1080 Output Total 1540 / 1540 1300 / 1300 900 / 900 Balance -220 / -220 -580 / -580 180 / 180 Weight 171 lb 1 oz 166 lb 7 oz 167 lb 1 oz Narrative: Pleasant, talkative, ENT exam clear. Neuro exam of the cranial nerves negative. Heart rate regular, lungs clear. Abdomen soft, no peripheral edema or clubbing. Limping noted with ataxic gait. See PT notes for details. No distal edema or clubbing. DS: Diagnosis - Discharge Diagnosis (1) Hypertension, essential Status: Chronic (2) Hypothyroidism Status: Chronic (3) Hx of fall Status: Acute (4) Intertrochanteric fracture of right femur Status: Acute Discharge/Transfer (Swing Bed) - Plan of Care Resident has been informed of condition and prognosis?: Yes Mobility Status: ambulatory with assistance Goal of treatment:: Return to home Rehab Potential: Good Prognosis:: good Mental Status: Average I concur with the most recent H&P: Yes Date of most recent H&P: 08/23/19 Certification: I have reviewed and agree with this resident's plan of care. I certify that post-hospital penitentiary facility services are required to be given on an inpatient basis because of the need for penitentiary care on a continuing basis for the condition(s) for which he/she is receiving inpatient hospital services prior to admission to swing bed. I also certify that the resident meets existing SNF level of care definition. - Discharge from Acute Disposition: [facility] Swing Bed Condition: Good Current Home Med List: Home Medications Medication Instructions Recorded Confirmed Type Alendronate Sodium 70 mg PO WEEKLY 08/16/19 08/16/19 History Amlodipine Besylate [Norvasc 2.5mg 5 mg PO DAILY 08/16/19 08/16/19 History tablet] Aspirin [Aspirin 81mg EC Tab] 81 mg PO DAILY 08/16/19 08/16/19 History Calcium Carb, Citrate/Vit D3 1 each PO DAILY 08/16/19 08/16/19 History [Calcium + D3 ER Tablet] Levothyroxine Sodium 125 mcg PO DAILY 08/16/19 08/16/19 History [Levothyroxine 125mcg (0.125mg) Tab] Lifitegrast [Xiidra] 1 each OP BID 08/16/19 08/16/19 History Acetaminophen with Codeine 1 - 2 tab PO QIDP PRN 30 Days tab 08/23/19 Rx [Tylenol with Codeine #3 tablet] Home Med List for Swing Bed: New Enoxaparin Sodium [Lovenox 30mg/0.3mL syringe] 30 mg SQ Q12H syringe Amlodipine Besylate [Norvasc 5mg tablet] 5 mg PO DAILY tablet Sennosides [Senokot 8.6mg tablet] 8.6 mg PO BIDP PRN tablet PRN Reason: Constipation Acetaminophen with Codeine [Tylenol with Codeine #3 tablet] 1 - 2 each PO Q6HP PRN tablet PRN Reason: Breakthru Moderate Pain Ondansetron HCl/Pf [Zofran 4mg/2mL vial] 4 mg IV Q6HP PRN vial PRN Reason: Nausea Acetaminophen with Codeine [Tylenol with Codeine #3 tablet] 1 - 2 tab PO QIDP PRN 30 Days tab PRN Reason: Severe Pain Pantoprazole Sodium [Protonix 40mg tablet] 40 mg PO DAILY tablet.dr Continued Aspirin [Aspirin 81mg EC Tab] 81 mg PO DAILY Amlodipine Besylate [Norvasc 2.5mg tablet] 5 mg PO DAILY Calcium Carb, Citrate/Vit D3 [Calcium + D3 ER Tablet] 1 each PO DAILY Lifitegrast [Xiidra] 1 each OP BID Levothyroxine Sodium [Levothyroxine 125mcg (0.125mg) Tab] 125 mcg PO DAILY Discontinued Alendronate Sodium 70 mg PO WEEKLY
== END 2019-08-23 13:55 | disposition swing bed (61) | DRG 482 ==
LOC: ER 10:30 → 2ND 12:38
PROVIDERS: ADMIT Internal Medicine Adolescent Medicine; ATTEND Internal Medicine Adolescent Medicine
CPT/HCPCS: 36415; 71010; 71045; 73502; 73552; 76000; 80053; 81001; 84484; 85007; 85025; 93005; 96365; 96375; 96376; 97110; 97116; 97162; 97165; 97530; 97535; 99284; C1713; C1769; C1776; J2405; J3370

== ENCOUNTER 2019-08-23 13:56 | Inpatient (IN) ==
--- NOTE | 2019-08-24 07:24 | Pharmacy Consult Notes ---
[facility] Pharmacy VTE Monitoring - Patient Demographics Admission date: 08/23/19 Report Date: 08/24/19 Time: 07:24 Allergies/Adverse Reactions: Patient Allergies ciprofloxacin [From CIPRO] Allergy (Mild, Verified 08/16/19 12:49) erythromycin base [ERYTHROMYCIN BASE] Allergy (Mild, Verified 08/16/19 12:49) Sulfa (Sulfonamide Antibiotics) [SULFA (SULFONAMIDE ANTIBIOTICS)] Allergy (Mild, Verified 08/16/19 12:49) Height: 1.68 cm Weight: 76.232 kg - VTE Risk Was VTE Risk Assessment Performed: Yes VTE Score: 6 VTE Risk Level: Moderate Risk - Prophylaxis VTE Prophylaxis Ordered?: Yes Types of VTE Prophylaxis: IPCS Thigh High, Pharmacological Location of Applied Device: Bilateral Lower Extremeties Pharmacologic Type: Enoxaparin - VTE Diagnosis Confirmed Treatment or plan recommended: Continue Current Treatment
--- NOTE | 2019-08-25 08:30 | Progress Note ---
Internal Medicine - PN: Subj *Date: 08/25/19 *Time: 08:29 Interval history: Has done well in swing bed. No major changes. Continues to progress with physical therapy Exam Vital signs and Labs for Last 24 Hours: Temp Pulse Resp BP Pulse Ox 98.2 F 87 20 128/63 97 08/25/19 07:49 08/25/19 07:49 08/25/19 07:49 08/25/19 07:49 08/25/19 07:49 I & O for Last 24 hours: Intake & Output 08/22/19 08/23/19 08/24/19 08/25/19 11:59 11:59 11:59 11:59 Intake Total 340 / 340 1090 / 1090 Output Total 1550 / 1550 1400 / 1400 Balance -1210 / -1210 -310 / -310 Weight 168 lb 1 oz 169 lb Narrative: Heart rate regular. Lungs are clear in the anterior and posterior riley. No edema noted. Patient is alert. Pleasant. Please see PT notes for details Assessment and Plan (1) Intertrochanteric fracture of right femur Current visit: No Status: Acute Category: Medical Code(s): S72.141A - Displaced intertrochanteric fracture of right femur, initial encounter for closed fracture No changes in plan, continue physical therapy. (2) Hypertension, essential Current visit: No Status: Chronic Category: Medical Code(s): I10 - Essential (primary) hypertension
--- NOTE | 2019-08-25 14:48 | Discharge Summary ---
General - General Admission date:: 08/23/19 Discharge date: 08/25/19 HPI HPI: *Admission Date: 08/16/19 *Reason for consult:: s/p hip fx *History of present illness: Seen in the ER for orthopedic consultation; patient's present at the bedside. Patient is a 68-year-old relatively healthy healthy white female with history of well-controlled hypertension, hypothyroidism and osteopenia was brought to the emergency department with history of right hip injury. Patient says she fell after slipping on a patch of ice while walking in the parking lot at her workplace. Following the injury she had severe pain over the right proximal thigh and could not get up and walk. Evaluation in the ER including x-rays demonstrated a comminuted and displaced intertrochanteric fracture of the right proximal femur. Patient is being admitted to hospital for further management. Patient denies any dizziness, headache, chest or neck pain. She denies loss of consciousness, chest pain and shortness of breath. She reports no other injuries. Normally she is mobile and independent and does not use any walking aids. She says she was diagnosed with osteopenia in the past and is on treatment for osteoporosis. She lives with her . Hospital Course Hospital Course: Patient underwent uncomplicated ORIF of right hip. Did well. Pain was controlled initially with morphine and then transitioning to hydrocodone therapy then to Tylenol 3 because of nausea. Patient did well, home medications were reinstated. No cardiopulmonary problems. Because of ongoing need for rehabilitation secondary to the severity of the fracture she was moved into the swing bed. Hospital Course Hospital Course: Met goals of PT quickly in swing bed. Good pain control with tylenol 3. NO changes on exam per Medical issues. Plan for d/c today with Outpt therapy appt. Rx for Walker, shower chair and pain rx Objective Vital signs: Temp Pulse Resp BP Pulse Ox 98.2 F 87 20 128/63 97 08/25/19 07:49 08/25/19 07:49 08/25/19 07:49 08/25/19 07:49 08/25/19 10:00 no acute distress - *Routine HEENT Exam Head: Present: normocephalic Eye: Present: EOMI, PERRL - *Routine Neck Exam Present: supple, full ROM - *Routine Respiratory Exam Present: CTA bilaterally - *Routine Cardiovascular Exam Present: RRR - *Routine Abdominal Exam Present: soft - *Routine Extremities Exam Comments: well healed scar... good but limited ROM.... no edema DS: Diagnosis - Discharge Diagnosis (1) Intertrochanteric fracture of right femur Status: Acute (2) Hypertension, essential Status: Chronic Discharge Plan - Patient Discharge Instructions ACTIVITY: Continue current activity DIET: continue same diet Patient Instructions: Hip Replacement, DI for Hip Replacement, DI for Surgical Site Infection - Follow up Plan Follow up with: Jones Contreras MD [Staff Physician] - 08/31/19 10:00 am Gabriel Dodson MD [Primary Care Provider] - 2 weeks Disposition: Home, Self-[facility] Medications: Home Medications Medication Instructions Recorded Confirmed Type Aspirin [Aspirin 81mg EC Tab] 81 mg PO DAILY 08/16/19 08/23/19 History Calcium Carb, Citrate/Vit D3 1 each PO DAILY 08/16/19 08/23/19 History [Calcium + D3 ER Tablet] Levothyroxine Sodium 125 mcg PO DAILY 08/16/19 08/23/19 History [Levothyroxine 125mcg (0.125mg) Tab] Lifitegrast [Xiidra] 1 each OP BID 08/16/19 08/23/19 History Alendronate Sodium [Fosamax 70mg 70 mg PO WEEKLY 08/23/19 08/23/19 History Tablet] Amlodipine Besylate [Norvasc 5mg 5 mg PO DAILY 08/23/19 08/23/19 History tablet] Ondansetron HCl/Pf [Zofran 4mg/2mL 4 mg IV Q6HP PRN vial 08/23/19 08/23/19 Rx vial] Pantoprazole Sodium [Protonix 40mg 40 mg PO DAILY 08/23/19 08/23/19 History tablet] Sennosides [Senokot 8.6mg tablet] 8.6 mg PO BIDP PRN tab 08/23/19 08/23/19 Rx Acetaminophen with Codeine 1 - 2 each PO Q6HP PRN #24 tab 08/25/19 Rx [Tylenol with Codeine #3 tablet] Enoxaparin Sodium [Lovenox 30 mg SQ Q12H #10 syr 08/25/19 Rx 30mg/0.3mL syringe] Ondansetron [Zofran 4mg ODT] 4 mg PO Q6HP PRN #15 tab.rapdis 08/25/19 Rx Prescriptions/Medication Reconciliation: New Ondansetron [Zofran 4mg ODT] 4 mg PO Q6HP PRN #15 tab.rapdis PRN Reason: Nausea Continued Aspirin [Aspirin 81mg EC Tab] 81 mg PO DAILY Calcium Carb, Citrate/Vit D3 [Calcium + D3 ER Tablet] 1 each PO DAILY Lifitegrast [Xiidra] 1 each OP BID Pantoprazole Sodium [Protonix 40mg tablet] 40 mg PO DAILY Levothyroxine Sodium [Levothyroxine 125mcg (0.125mg) Tab] 125 mcg PO DAILY Amlodipine Besylate [Norvasc 5mg tablet] 5 mg PO DAILY Alendronate Sodium [Fosamax 70mg Tablet] 70 mg PO WEEKLY Acetaminophen with Codeine [Tylenol with Codeine #3 tablet] 1 - 2 each PO Q6HP PRN #24 tab PRN Reason: Breakthru Moderate Pain Enoxaparin Sodium [Lovenox 30mg/0.3mL syringe] 30 mg SQ Q12H #10 syr Discontinued Ondansetron HCl/Pf [Zofran 4mg/2mL vial] 4 mg IV Q6HP PRN vial PRN Reason: Nausea No Action Sennosides [Senokot 8.6mg tablet] 8.6 mg PO BIDP PRN tab PRN Reason: Constipation - Problem Reconciliation Problems Reviewed?: Yes
== END 2019-08-25 18:25 | disposition home or self-care (01) | DRG 561 ==
LOC: 2ND 13:56
PROVIDERS: ADMIT Internal Medicine Adolescent Medicine; ATTEND Internal Medicine Adolescent Medicine

== ENCOUNTER → 2019-09-07 14:55 | Outpatient (CLI) | payer BC, SELFPAY ==
--- NOTE | 2019-09-07 15:00 | XR_ITS ---
PROCEDURE: XR HIP RT 2-3V W/PELVIS CLINICAL INDICATION: closed reduction nailing rt femur, dos 08/16/19 Follow-up fracture/open reduction and internal fixation COMPARISON: XR HIP RT 2-3V W/PELVIS from 08/16/2019 XR HIP RT 2-3V W/PELVIS from 08/16/2019 XR FEMUR RT 2V from 09/07/2019 FINDINGS: Post ORIF comminuted right inter and subtrochanteric hip fracture. Gamma nail with intramedullary aniket is present. The distal aspect of the femur has an unremarkable appearance. There is medial displacement of the lesser trochanter. Developing callus formation is noted at the fracture site with good alignment and minimal varus angulation of the distal fracture fragment. IMPRESSION: Healing right inter troch fracture status post ORIF as described above. Dictated by: Dajuan Griffin MD 09/07/2019 16:28 Electronically signed by Dajuan Griffin MD in [place] 09/07/2019 16:28
== END ==
PROVIDERS: PCP Internal Medicine Adolescent Medicine; Visit Provider Orthopaedic Surgery
DX: Z48.89 Encounter for other specified surgical aftercare (principal); S72.141D Displaced intertrochanteric fracture of right femur, subsequent encounter for closed fracture with routine healing
CPT/HCPCS: 73502; 73552

== ENCOUNTER → 2019-10-03 14:53 | Outpatient (CLI) | payer BC, MEDICARE, SELFPAY ==
--- NOTE | 2019-10-03 15:17 | XR_ITS ---
PROCEDURE: XR HIP RT 2-3V W/PELVIS CLINICAL INDICATION: closed reduction nailing rt femur, dos 08/16/19 F COMMINUTED FEMUR FRACTURE COMPARISON: XR FEMUR RT 2V from 09/07/2019 XR HIP RT 2-3V W/PELVIS from 09/07/2019 XR FEMUR RT 2V from 10/03/2019 FINDINGS: Gamma nail with long intramedullary aniket is present stabilizing the comminuted fracture at the lesser trochanter region. There is persistent medial displacement of the lesser trochanter. Callus formation is developing at the fracture site consistent with healing. The mid distal aspect of the femur has an unremarkable appearance with intramedullary aniket present IMPRESSION: Healing right proximal femur fracture with hardware present as described above Dictated by: Dajuan Griffin MD 10/03/2019 17:19 Electronically signed by Dajuan Griffin MD in [place] 10/03/2019 17:19
== END ==
PROVIDERS: PCP Internal Medicine Adolescent Medicine; Visit Provider Orthopaedic Surgery
DX: S72.141A Displaced intertrochanteric fracture of right femur, initial encounter for closed fracture (principal)
CPT/HCPCS: 73502; 73552

== ENCOUNTER → 2019-11-14 14:07 | Outpatient (CLI) | payer BC, MEDICARE, SELFPAY ==
--- NOTE | 2019-11-14 14:12 | XR_ITS ---
PROCEDURE: XR HIP RT 2-3V W/PELVIS CLINICAL INDICATION: closed reduction nailing rt femur, dos 08/16/19 Follow-up closed reduction COMPARISON: XR HIP RT 2-3V W/PELVIS from 10/03/2019 XR FEMUR RT 2V from 11/14/2019 FINDINGS: Gamma nail with intramedullary aniket remains in place. There is displaced lesser trochanter fragment. There is increasing callus formation at the subtrochanteric fracture site with minimal medial angulation of the distal fracture fragment. Heterotopic ossification noted superior to the greater trochanter. Mid distal aspect of the intramedullary aniket has an unremarkable appearance. IMPRESSION: Healing right subtrochanteric fracture status post ORIF Dictated by: Dajuan Griffin MD 11/14/2019 15:08 Electronically signed by Dajuan Griffin MD in [place] 11/14/2019 15:08
== END ==
PROVIDERS: PCP Internal Medicine Adolescent Medicine; Visit Provider Orthopaedic Surgery
DX: Z48.89 Encounter for other specified surgical aftercare (principal); S72.141D Displaced intertrochanteric fracture of right femur, subsequent encounter for closed fracture with routine healing
CPT/HCPCS: 73502; 73552

== ENCOUNTER 2019-11-21 16:30 | Outpatient (RCR) | payer BC, MEDICARE, SELFPAY ==
--- NOTE | 2019-08-29 15:39 | HMH.PTOPEV ---
PT Outpatient Evaluation Rehab PT Outpatient Evaluation Start: 08/29/19 14:40 Freq: Status: Active Protocol: Document 08/29/19 14:51 PWNOVA (Rec: 08/29/19 15:39 PWNOVA [id number]) Electronically Signed By Richard Hernandez PT 08/29/19 14:51 Outpatient Therapy Subjective History Subjective History This is the initial Physical Therapy evaluation for Piedad Godoy. Pt is a 68 y /o female referred to PT for rehab for R hip IMN s/p fall and femur fracture. Pt reports she fell on ice causing femur fx. Pt had IMN placed on same day. Pt now reports to PT for weakness, pain and loss of function. Chief Complaint Pain,Weakness Symptom Type Sharp,Stabbing Symptoms Relieved By Rest/Positioning,Ice, Prescription Meds Symptoms Aggravated By Standing,Physical Activity, Twisting,Lifting Prior Functional Limitations None Current Functional Limitations Lifting,Housework,Squatting, Recreation Activity,Walking, Stairs Symptom Description Intermittent Level of pain today (0-10) 2 Pain scale - at its best (0-10) 0 Pain scale - at its worst (0-10) 6 Hip/Knee Eval Gait Observation General Gait Pattern Observation Antalgic Gait,Decrease Weight Bear (R),Decrease Stride Lngth (R),Decrease Stride Lngth (L) Assistive Device Assistive Devices Rolling / Wheeled Walker Palpation Tenderness right Knee Palpation Finding Tenderness Hip Palpation Findings Tenderness MMT left Hip Strength Reason Not Measured WFL Knee Strength Reason Not Measured WFL right Hip Flexion Strength Grade 2+ Poor+ Hip Abduction Strength Grade 2+ Poor+ Hip Adduction Strength Grade 4- Good- Hip Extension Strength Grade 4- Good- Hip External Rotation Strength Grade 3+ Fair+ Hip Internal Rotation Strength Grade 3+ Fair+ Knee Extension Strength Grade 4- Good- Knee Flexion Strength Grade 4 Good Outpatient Therapy Assessment Impairments Problems/Impairmments Palpation Tenderness,Impaired Range of Motion,Impaired Strength,Impaired Gait Pattern ,Impaired Walking,Impaired Standing,Impaired Driving, Impaired Shower/Bathing, Impaired Househo
== END 2019-11-21 17:25 | disposition home or self-care (01) ==
LOC: PT 16:30
PROVIDERS: PCP Internal Medicine Adolescent Medicine; Visit Provider Internal Medicine Adolescent Medicine
DX: M25.551 Pain in right hip (principal)
CPT/HCPCS: 97010; 97014; 97110; 97116; 97163; 97164; G0283

== ENCOUNTER → 2020-02-22 09:40 | Outpatient (CLI) | payer BC, MEDICARE, SELFPAY ==
--- NOTE | 2020-02-22 09:54 | XR_ITS ---
PROCEDURE: XR FEMUR RT 2V CLINICAL INDICATION: closed reduction nailing rt femur, dos 08/16/19 COMPARISON: XR FEMUR RT 2V from 11/14/2019 FINDINGS: The visualized portion of the stool intramedullary aniket is stable unchanged in appearance from previous right femur film 11/14/2019 there is no evidence of loosening of the single transversely oriented threaded screw at the diametaphyseal level distal femur. IMPRESSION: Stable appearance of intramedullary aniket Dictated by: Dr. Steve Calvert MD 02/22/2020 12:[address] Steve Calvert MD in [place] 02/22/2020 12:04
--- NOTE | 2020-02-22 09:54 | XR_ITS ---
PROCEDURE: XR HIP RT 2-3V W/PELVIS CLINICAL INDICATION: closed reduction nailing rt femur, dos 08/16/19 COMPARISON: XR HIP RT 2-3V W/PELVIS from 11/14/2019 FINDINGS: The gamma nail is in good alignment and position within the femoral neck and head. The femoral head appears viable. There is increased density of the callus formation at the fracture of the lesser trochanter and sub trochanteric fracture line. Again noted is a small bone fragment slightly from the greater trochanter superiorly. IMPRESSION: Healthy callus formation with satisfactory ORIF subtrochanteric fracture right hip Dictated by: Dr. Steve Calvert MD 02/22/2020 12:[address] Steve Calvert MD in [place] 02/22/2020 12:08
== END ==
PROVIDERS: PCP Internal Medicine Adolescent Medicine; Visit Provider Orthopaedic Surgery
DX: Z09 Encounter for follow-up examination after completed treatment for conditions other than malignant neoplasm (principal); S72.141D Displaced intertrochanteric fracture of right femur, subsequent encounter for closed fracture with routine healing
CPT/HCPCS: 73502; 73552

== ENCOUNTER → 2021-12-25 09:22 | Outpatient (CLI) | payer BC, MEDICARE, SELFPAY | PROVIDERS: PCP Internal Medicine Adolescent Medicine; Visit Provider Family Medicine | DX: Z20.822 Contact with and (suspected) exposure to COVID-19 (principal) | CPT/HCPCS: 87275; 87276; C9803; U0003; U0005 ==

== ENCOUNTER 2022-03-20 08:41 | Emergency (ER) | payer BC, MEDICARE, SELFPAY ==
[2022-03-20 09:20] VITALS: BP 162/68; PULSE 78; RESP 16; TEMP 36.9; O2SAT 96; BMI 27.2
--- NOTE | 2022-03-20 09:34 | HMH.EDUTC ---
[facility] [place] Disposition Clinical Impression: Viral syndrome, Exposure to COVID-19 virus Disposition: Home, Self-Care Condition on Discharge: Good Instructions: DI for COVID-19 (Suspected or Confirmed ), Preventing the Spread of Coronavirus Discharge Instructions Additional Instructions: Drink plenty of fluids. Take tylenol or ibuprofen for pain or fever. Take the medications as directed. Follow up with your regular doctor. GO TO THE ER FOR ANY WORSENING SYMPTOMS Quarantine until you know the results of your covid-19 test. Notify your school or workplace of your results and follow their instructions regarding return to work/school. Prescriptions: Ondansetron [Zofran 4mg ODT] 4 mg PO Q8HP PRN #12 tab PRN Reason: Nausea Transmission Status: Received by [facility] Benzonatate [Benzonatate 100mg cap] 100 mg PO TIDP PRN #30 cap PRN Reason: Cough Transmission Status: Received by [facility] Referrals: Gabriel Dodson MD [Primary Care Provider] - Time of Disposition: 09:45 Medical Decision Making - Medical Records Medical records reviewed: No: I reviewed the patient's medical records. - Sanchez Inquiry Pt receiving controlled substance: No Vital Signs: 03/20/22 09:20 03/20/22 09:53 Temperature 98.4 F 98.4 F Temperature Source Oral Pulse Rate 78 Pulse Rate [Left] 78 Respiratory Rate 16 16 Blood Pressure 162/68 H Blood Pressure [Right Arm] 162/68 H Blood Pressure Mean [Right Arm] 99 02 Sat by Pulse Oximetry 96 - Lab Data Lab results reviewed: Yes: I reviewed the patient's lab results. [facility] [place] HPI - General Stated complaint: vomiting/diarrhea, body aches, congestion, h/a Time Seen by Provider: 03/20/22 09:34 Description of Symptoms (Recalled from Triage Doc. by RN): patient comes in for covid symptoms. symptoms began wednesday,. vomitting. diarrhea, chills, headache, nasal congestion, cough. HEENT Symptoms (Recalled from RN notes): Yes Resp Symptoms (Recalled from RN notes): Yes Skin Symptoms (Recalled from RN notes): No MS Symptoms (Recalled from RN notes): No Functional Status (Recalled from RN notes): n/a - History of Present Illness Provider Complaint: She states that for the past 3 days she has had worsening chest congestion, body aches and malaise. - Related Data Home Medications Medication Instructions Recorded Confirmed Aspirin [Aspirin 81mg EC Tab] 81 mg PO DAILY 08/16/19 02/22/20 Calcium Carb, Citrate/Vit D3 1 each PO DAILY 08/16/19 02/22/20 [Calcium + D3 ER Tablet] Levothyroxine Sodium 125 mcg PO DAILY 08/16/19 02/22/20 [Levothyroxine 125mcg (0.125mg) Tab] Lifitegrast [Xiidra] 1 each OP BID 08/16/19 02/22/20 Alendronate Sodium [Fosamax 70mg 70 mg PO WEEKLY 08/23/19 02/22/20 Tablet] Amlodipine Besylate [Norvasc 5mg 5 mg PO DAILY 08/23/19 02/22/20 tablet] Pantoprazole Sodium [Protonix 40mg 40 mg PO DAILY 08/23/19 02/22/20 tablet] Previous Rx's Medication Instructions Recorded Enoxaparin Sodium [Lovenox 30 mg SQ Q12H #10 syr 08/25/19 30mg/0.3mL syringe] Ondansetron [Zofran 4mg ODT] 4 mg PO Q6HP PRN #15 tab.rapdis 08/25/19 Benzonatate [Benzonatate 100mg 100 mg PO TIDP PRN #30 cap 03/20/22 cap] Ondansetron [Zofran 4mg ODT] 4 mg PO Q8HP PRN #12 tab 03/20/22 Allergies Allergy/AdvReac Type Severity Reaction Status Date / Time ciprofloxacin [From CIPRO] Allergy Mild Verified 03/20/22 09:25 erythromycin base Allergy Mild Verified 03/20/22 09:25 [ERYTHROMYCIN BASE] Sulfa (Sulfonamide Allergy Mild Verified 03/20/22 09:25 Antibiotics) [SULFA (SULFONAMIDE ANTIBIOTICS)] - Worker's Comp Is this a Worker's Comp case?: No H History - Hepatitis A Screen Attestation statement:: This patient has been screened for Hepatitis A risk factors. I have reviewed the patient's past medical history: Yes Medical History: Reports:: Hypertension Denies:: Diabetes Estela
[2022-03-20 09:53] VITALS: BP 162/68; PULSE 78; RESP 16; TEMP 36.9
== END 2022-03-20 09:54 | disposition home or self-care (01) ==
PROVIDERS: Emergency Provider Nurse Practitioner Family; PCP Internal Medicine Adolescent Medicine
DX: U07.1 COVID-19 (principal)
CPT/HCPCS: 99212; C9803; G0463; U0003; U0005

== ENCOUNTER → 2022-08-03 08:54 | Outpatient (CLI) | payer BC, SELFPAY ==
--- NOTE | 2022-08-03 09:01 | XR_ITS ---
FINAL REPORT TECHNIQUE: Bone densitometry calculations of the lumbar spine, forearm and hip were obtained. CLINICAL HISTORY: . screening FINDINGS: DEXA BONE DENSITY AXIAL SKELETON Using L1-4, the bone mineral density of the spine is 0.864 g/cm2, corresponding to T-score of -1.7. Using the right forearm, the bone mineral density of the distal 1/3 is 0.595 g/cm2, corresponding to a T-score of -1.7. Using the left hip, the bone mineral density of the femoral neck is 0.670 g/cm2, corresponding to a T-score of -2.2. NOTE: T-score: Standard deviation compared with peak bone mass of young adult mean. *Following the recommendations of the International Society of Bone densitometry, classification of hip BMD is based on the lower of two T-scores; total hip or femoral neck. IMPRESSION: Diminished bone mineral density of the lumbar spine, right forearm and left hip consistent with osteopenia. FRAX is not reported because patient is being treated for osteoporosis. Reviewed, Interpreted and Dictated by Yelitza Lucero MD Transcribed by Ceci Dean Authenticated and [facility]
== END ==
PROVIDERS: PCP Internal Medicine Adolescent Medicine; Visit Provider Internal Medicine Adolescent Medicine
DX: Z78.0 Asymptomatic menopausal state (principal)
CPT/HCPCS: 77080

== ENCOUNTER 2024-05-22 06:45 | Outpatient (CLI) | payer BC, SELFPAY ==
--- NOTE | 2024-05-22 | CA_ITS ---
APPROVED REPORT Exam: Pharmacologic Technologist: Terra Vergara, Ht: 5 ft 6 in Wt: 175 lbs BSA: 1.89 m2 HR: 78 bpm BP: 146/82 mmHg Medical History Medications: Omeprazole,,,,, Levothyroxine,,,,, Alendronate,,,,, Amldopine,,,,, Cardiac Risk Factors: HTN, Hyperlipidemia, FHX of CAD Stress Test Details Test: LEXISCAN HR Resting HR: 81 bpm Max Heart Rate (APMHR): 148 bpm Max HR Achieved: 97 bpm Target HR (85% APMHR): 126 bpm % of APMHR: 66 Recovery HR: 85 bpm BP Resting BP: 146.0/82.0 mmHg Max BP: 150.0/69.0 mmHg Recovery BP: 145.0/64.0 mmHg ECG Resting ECG: Normal sinus rhythm Stress ECG: No significant ST changes Arrhythmia: PACs Clinical Exercise duration: 04:00 min Highest Stage Achieved: Exercise capacity: 1.0 METs Stress ECG Conclusion During lexiscan pt experinced SOB and chest tightness. PAC noted in recovery. Conclusion: Unremarkable due to lexiscan infusion. Myoview images reported separately. Test Summary REST . . . . . . . Sitting REST 10:59 . . 81 . 146/ 82 . . Stage 1 . . . . . . . Cardiolite injected Stage 1 01:00 . . 97 . . . . Stage 2 01:00 . . 91 . 147/ 65 . . Stage 3 01:00 . . 90 . 146/ 64 . . Stage 4 01:00 . . 84 . 131/ 63 . Stop exercise at 04:00 RECOVERY 01:00 . . 85 . . . . RECOVERY 02:00 . . 85 . 145/ 64 . . RECOVERY 02:22 . . 87 . 150/ 69 . . Electronically signed by : Gayle Li MD 05/24/2024 00:22:18
--- NOTE | 2024-05-22 06:57 | NM_ITS ---
APPROVED REPORT Exam: Nuclear Stress Test Indication: Chest pain, SOB, Fatigue, HTN, High cholesterol, Family history Patient Location: Outpatient Stress Tech: Terra METZ Tech:Tiffany Martínez, ARRT, RT (R)(N) Ht: 5 ft 6 in Wt: 175 lbs Bra Size: 38C HR: 81 bpm BP: 146/82 mmHg BSA: 1.89 m2 TID: 1.23 BMI: 28.2 History: Chest pain, SOB, Fatigue, HTN, High cholesterol, Family history Procedure: Patient received 0.4 mg of intravenous Lexiscan, resting heart rate 81 bpm, resting blood pressure 146/82 mmHg, with Lexiscan maximum heart rate achieved was 97 bpm which is % of the maximum predicted heart rate and blood pressure was 150/69 mmHg. With Lexiscan, patient denied any complaint of chest pain. Cardiac Stress and Resting SPECT Images: Cardiac Stress and Resting SPECT images were obtained using technetium 99m Myoview 30.9 mCi stress and 10.69 mCi at rest. Resting and stress imaging in supine and prone positions demonstrate no evidence of fixed or reversible perfusion defects. There is increase in transit ischemic dilatation ratio (TID 1.23), suggestive of possible multivessel disease or balanced ischemia. Gated imaging demonstrates normal global and regional LV systolic function. LVEF is calculated at 72%. Conclusion: No evidence of fixed or reversible perfusion defects. There is increase in transit ischemic dilatation ratio (TID 1.23), suggestive of possible multivessel disease or balanced ischemia. Gated imaging demonstrates normal global and regional LV systolic function. LVEF is calculated at 72%. Electronically signed by : Gayle Li MD 05/24/2024 00:23:41
[2024-05-22] MEDS: SODIUM CHLORIDE 0.9% 10ML SYR (RAD ONLY) 10 ML IV ×2 (08:59)
[2024-05-22] MEDS: REGADENOSON 0.4MG/5ML SYRINGE 0.4 MG IV (08:59)
[2024-05-22] MEDS: ISOTOPE MYOVIEW (PER STUDY) 1 DOSE IV (08:59)
== END 2024-05-22 23:59 | disposition home or self-care (01) ==
PROVIDERS: PCP Internal Medicine Adolescent Medicine; Visit Provider Internal Medicine Adolescent Medicine
DX: R06.09 Other forms of dyspnea (principal); Z98.890 Other specified postprocedural states
CPT/HCPCS: 78452; 93017; 93018; A9502; J2785

== ENCOUNTER 2024-05-24 10:31 | Day surgery (SDC) | payer BC, SELFPAY ==
[2024-05-24 10:53] VITALS: BP 149/65; PULSE 77; RESP 18; TEMP 36.2; O2SAT 97
[2024-05-24] MEDS: LACTATED RINGERS 1000ML 1,000 ML 25 ML IV (10:53)
[2024-05-24 10:59] VITALS: BMI 28.2
--- NOTE | 2024-05-24 11:11 | ECG_ITS ---
APPROVED REPORT Exam: Resting ECG HR:76 bpm ECG Measurements Heart Rate 76 AXES SC 156 P 45 QRSd 81 QRS 29 QT 386 T 35 QTc 416 Conclusion SINUS RHYTHM NORMAL ECG UNCONFIRMED REPORT Electronically signed by : Gabriel Dodson MD 05/26/2024 14:18:59
[2024-05-24 11:15] LABS: Chloride 110 mmol/L (98-107); Potassium 4.2 mmoL/L (3.5-5.1); Sodium 140 mmol/L (136-145)
[2024-05-24 11:16] LABS: Basophils % 0.7 % (0.1-2.0); Eosinophils # 0.1 K/mm3 (0.0-0.4); Eosinophils % 1.4 % (0.1-12.0); Hemoglobin 15.6 g/dL (12.2-16.2); Lymphocytes # 1.3 K/mm3 (0.7-4.5); Lymphocytes % 29.2 % (10-50); Mean Corpuscular HGB Conc 32.5 g/dL (31.8-35.4); Mean Corpuscular Hemoglobin 30.6 pg (27.0-31.2); Mean Corpuscular Volume 94.2 fl (81-99); Mean Platelet Volume 8.2 fl (7.4-10.4); Monocytes # 0.2 K/mm3 (0.1-1.0); Monocytes % 5.5 % (1.7-9.3); Neutrophils # 2.8 K/mm3 (1.8-7.8); Neutrophils % 63.1 % (37.0-80.0); Platelet Count 199 K/mm3 (142-424); Red Cell Distribution Width 13.5 % (11.5-17.5); White Blood Count 4.4 K/mm3 (4.8-10.8)
[2024-05-24 11:18] LABS: Anion Gap 9.2 mEq/L (5-15); Blood Urea Nitrogen 21 mg/dl (7-17); Calcium 9.3 mg/dl (8.4-10.2); Carbon Dioxide 25 mmol/L (22.0-30.0); Creatinine Clearance Estimated 64 mL/min (50-200); Estimated Glomerular Filt Rate 55 ml/min (>60); GFR (African American) 66 ML/MIN (>60); Glucose 106 mg/dl (74-100)
[2024-05-24 11:21] LABS: INR 0.96 (0.9-1.1); Prothrombin Time 10.8 seconds (10.1-12.5)
--- NOTE | 2024-05-24 11:27 | EXP.ANES.CKL ---
[facility] Disclaimer: The information contained in this section may have been updated after the patient was seen, as this information can be updated by other users. Surgical History History of heart valve repair History of mitral valve repair Family History Other Family history of cancer Family history of hypertension Family history of myocardial infarction Social History Smoking Status: Never smoker alcohol intake: never substance use type: other current occupational status: employed Travel in the last 8 weeks: None household members: spouse housing: house education level: college caffeine: No [facility] Anesthesia Checklist Patient Identification Patient Identification: Arm Band and Verbal (Name & ) Structural Data Admitted From: Home Planned Operative Procedure/s: ENRIQUE Consent for Planned Operative Procedure(s) Verified: Yes Verified Documents: Surgical Consent and History and Physical NPO Status Verified Time NPO: 00:00 Chart Verification Results Verified: CBC, BMP and ECG Additional verifications Anesthesia Reactions: No Hx Blood Transfusions: No Blood Transfusion Reaction: No Airway Assessment Mallampati Score:: Class III C-Spine Mobility Assessed: Yes TMJ Mobility Assessed: Yes Dentition: Good Dentition Neurological Assessment Level of Consciousness: Awake Hx Seizures: No Numbness or tingling in extremities: No Anesthesia Plan Anesthesia Risk discussed: Yes Anesthesia Plan: Verified ASA Class: III Anesthesia Type: MAC
--- NOTE | 2024-05-24 11:30 | CA_ITS ---
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 3.40 (<2mmHg) Procedure After obtaining informed consent, patient underwent transesophageal echo in the [facility]. Type of Sedation : MAC Sedation was administered by Suraj Quick C.R.N.A. Sedation start time: 12:00 Case end Time: 12:15 Transesophageal probe was inserted and advanced into esophagus without difficulty by Dr. Abrahan Li. The ENRIQUE was performed without complications. Throughout the procedure, the blood pressure, pulse oximetry, cardiac rhythm, and rate were monitored. The patient tolerated the procedure without adverse effects. Recovery from conscious sedation was uneventful and vital signs were stable. Left Ventricle The left ventricle is normal size. The left ventricular systolic function is normal. The left ventricular ejection fraction is within the normal range. There is normal left ventricular wall thickness. There is normal LV segmental wall motion. LVEF is 55%. Right Ventricle Right ventricle is mildly dilated. The right ventricular systolic function is normal. Atria The left atrium size is normal. No thrombus is visualized in the left atrium or appendage. The right atrium size is normal. Interatrial septum is intact without evidence of ASD or PFO. Aortic Valve The aortic valve opens well. The aortic valve is trileaflet. There is no aortic valvular stenosis. No aortic regurgitation is present. Mitral Valve s/p mitral valve repair. Mean MV gradient 3 mmHg (HR 82 bpm). Trace mitral regurgitation. Tricuspid Valve The tricuspid valve leaflets are thin and pliable. Mild tricuspid regurgitation. RVSP is 8 mmHg plus RA pressure. Pulmonic Valve The pulmonary valve is normal in structure. Trace pulmonic regurgitation. Great Vessels The aortic root is normal in size. The ascending aorta is normal in size. Pericardium There is no pericardial effusion. Other Information Study Quality: Fair Conclusion Normal biventricular systolic function. Mild RV dilation. No significant valvular stenosis or regurgitation. s/p MV repair. Trace MR. Mean MV gradient acceptable at 3 mmHg (HR 82 bpm). No evidence of vegetations or masses or thrombi. Electronically signed by : Gayle Li MD 05/24/2024 14:44:00
[2024-05-24 11:53] VITALS: O2SAT 97
[2024-05-24 12:06] VITALS: BP 135/74; PULSE 84; RESP 16; TEMP 36.2; O2SAT 94
[2024-05-24 12:16] VITALS: BP 142/79; PULSE 83; RESP 16; O2SAT 93
[2024-05-24 12:26] VITALS: BP 132/67; PULSE 79; RESP 16; O2SAT 94
[2024-05-24 12:36] VITALS: BP 145/81; PULSE 79; RESP 16; TEMP 36.6; O2SAT 98
== END 2024-05-24 12:42 | disposition home or self-care (01) ==
PROVIDERS: PCP Internal Medicine Adolescent Medicine; Visit Provider Internal Medicine
DX: R06.89 Other abnormalities of breathing (principal); Z82.49 Family history of ischemic heart disease and other diseases of the circulatory system; Z95.4 Presence of other heart-valve replacement
CPT/HCPCS: 80048; 85025; 85610; 93005; 93270; 93312; 93319; J2250; J7120

== ENCOUNTER 2024-05-30 11:31 | Day surgery (SDC) | payer BC, SELFPAY ==
[2024-05-30] VITALS (9 sets, daily range): BP systolic 130–155; BP diastolic 67–81; PULSE 78–87; RESP 18–20; O2SAT 93–98; BMI 28.0
--- NOTE | 2024-05-30 07:23 | IR_ITS ---
APPROVED REPORT Patient Location: Outpatient Agency Development Manager: VESTA Rondon RT (R) PROCEDURES 1. Left heart catheterization 2. Selective coronary arteriography 3. Left ventriculography 4. Right heart catheterization INDICATION 1. Angina pectoris, 2. Abnormal stress test, 3. Congestive heart failure SCAI INDICATION Patient is a 73-year-old white female who presented with profound increasing shortness of breath. Underwent a Myoview which came back high risk. Symptoms of heart failure. Secondary to this referred for left and right heart catheterization Informed consent was obtained prior to the procedure. COMPLICATIONS NONE Estimated Blood Loss: LESS THAN 10 ML TECHNIQUE One percent lidocaine was used to anesthetize the right anterior aspect of the right wrist. The right radial artery was accessed via the Seldinger technique and a 6 Monegasque hydrophilic sheath was placed in the right radial artery. Following this one percent lidocaine was used to anesthetize the right anterior aspect of the right neck. The right internal jugular vein was accessed via the Seldinger technique and a 7 Monegasque sheath was placed in the right internal jugular vein. Following this an arterial cocktail was administered using 5000U heparin, 2.5 mg verapamil, 1mg Lidocaine and 800mcg nitroglycerin into the right radial sheath. A papa catheter was used to perform left heart catheterization left ventriculogram and selective coronary angiography while a Amsterdam-Luis E catheter was used to perform right heart catheterization. Saturations were obtained in the pulmonary artery and right atrium. At the end of the procedure the arterial sheath was removed good hemostasis was achieved using Traclet band. Patient was transferred to the postop holding area in stable condition for venous sheath removal. ANGIOGRAPHIC RESULTS The left main artery Angiographically normal The left anterior descending artery Smooth 20% proximal and smooth 20% mid stenosis. Normal flow into the distal vessel The circumflex artery Smooth 20% ostial stenosis. Also with smooth 20% mid stenosis but normal flow into the distal vessel The right coronary artery Large and dominant with mild luminal irregularities but no significant stenosis The FLORES ventriculogram reveals Ejection fraction 65 to 70% The left ventricular end-diastolic pressure 8 Right heart catheterization was also performed. Amsterdam-Luis E catheter placed without difficulty. The right atrial pressure was 5 with a right ventricular pressure 32/5 and a pulmonary artery pressure 33/10. Pulmonary capillary wedge pressure 7. The arterial saturation was 95% with a pulmonary artery saturation of 81.5% and a right atrial saturation of 82.4%. Calculated cardiac output 8.2 IMPRESSION 1. Mild diffuse coronary artery disease 2. Normal left ventricular systolic function 3. Normal left ventricular end-diastolic pressure and pulmonary capillary wedge pressure 4. Normal pulmonary artery pressure, pulmonary artery saturation and cardiac output 5. Successful placement of a radial band on the right radial artery PLAN 1. Patient has mild diffuse coronary artery disease with normal left ventricular systolic function and normal pressures in the heart. Cardiac output is normal. Look for noncardiac causes of shortness of breath. Follow-up in cardiology clinic in 1 to 2 weeks for further evaluation and treatment Electronically signed by : Kirk Milligan MD 05/30/2024 12:58:36
[2024-05-30] MEDS: 0.9 % SODIUM CHLORIDE 500 ML 25 ML IV (12:43)
[2024-05-30] MEDS: VERAPAMIL 2.5MG/ML 2ML VIAL 2.5 MG IV (12:43)
[2024-05-30] MEDS: diphenhydrAMINE 50MG/ML VIAL 50 MG IV (12:43)
[2024-05-30] MEDS: NITROGLYCERIN 800MCG/8ML SYR (CATH LAB) 800 MCG IA (12:43)
[2024-05-30] MEDS: FENTANYL 100MCG/2ML VIAL 50 MCG IV (12:44)
[2024-05-30] MEDS: MIDAZOLAM HCL 1MG/1ML 5ML VIAL 1 MG IV (12:44)
[2024-05-30] MEDS: HEPARIN 1,000 UNITS/500ML NS (CATH LAB) 3000 UNIT IV (12:44)
[2024-05-30] MEDS: HEPARIN 1,000 UNITS/ML 10ML VIAL (CATH LAB) 10000 UNIT IV (12:48)
[2024-05-30] MEDS: IOPAMIDOL-370 (76%);100ML BOTTLE 50 ML IV (16:08)
[2024-05-30 16:09] LABS: CATHL Arterial O2 SAT 81.5 % (90-100); CATHL Venous O2 SAT 82.4 % (75-80)
== END 2024-05-30 15:15 | disposition home or self-care (01) ==
PROVIDERS: PCP Internal Medicine Adolescent Medicine; Visit Provider Internal Medicine Cardiovascular Disease
DX: I25.118 Atherosclerotic heart disease of native coronary artery with other forms of angina pectoris (principal); R06.02 Shortness of breath; R07.9 Chest pain, unspecified; Z79.899 Other long term (current) drug therapy; I50.9 Heart failure, unspecified
CPT/HCPCS: 82810; 93460; 99152; C1725; C1769; C1894; J1200; J1644; J2250; J3010; Q9967

== ENCOUNTER 2024-06-08 06:54 | Outpatient (CLI) | payer BC, SELFPAY ==
--- NOTE | 2024-06-08 06:59 | CT_ITS ---
FINAL REPORT TECHNIQUE: Axial imaging of the chest was obtained without contrast. Reformatted images were also obtained and reviewed.This study was performed with techniques to keep radiation doses as low as reasonably achievable, (ALARA). Individualized dose reduction technique using automated exposure control or adjustment of mA and/or kV according to the patient's size were employed. CLINICAL HISTORY: SOA/CHEST PRESSURE FINDINGS: Patient is status post median sternotomy with multiple wires present. There is no axillary adenopathy. There are tiny scattered mediastinal lymph nodes. There is no hilar or mediastinal mass or adenopathy. Heart size is normal. There is no pericardial or pleural effusion. No suspicious infiltrate or nodule is identified on lung window images. There is a moderate size hiatal hernia. IMPRESSION: No acute process. Moderate sized hiatal hernia. Reviewed, Interpreted and Dictated by Renzo Trujillo MD Transcribed by Britta Reid Authenticated and [facility]
[2024-06-08] MEDS: ALBUTEROL 0.083% 2.5 MG/3 ML NEB IH (09:27)
== END 2024-06-08 23:59 | disposition home or self-care (01) ==
PROVIDERS: PCP Internal Medicine Adolescent Medicine; Visit Provider Internal Medicine Adolescent Medicine
DX: R07.89 Other chest pain (principal); I10 Essential (primary) hypertension; R06.02 Shortness of breath
CPT/HCPCS: 71250; 94060; 94726; 94729; J7613

== ENCOUNTER 2024-10-30 12:01 | Outpatient (CLI) | payer MEDICARE, SELFPAY ==
--- NOTE | 2024-10-30 12:07 | XR_ITS ---
FINAL REPORT CLINICAL HISTORY: PAIN COMPARISON: None FINDINGS: LEFT KNEE Three views demonstrate no acute fracture or dislocation. There is minimal spurring and mild joint space narrowing within the medial compartment. There is no evidence of joint effusion. There are questionable soft tissue defects overlying the patella without radiopaque foreign body. IMPRESSION: No acute bony abnormality. Reviewed, Interpreted and Dictated by Yelitza Lucero MD Transcribed by Lexus Manning Authenticated and [facility]
== END 2024-10-30 23:59 | disposition home or self-care (01) ==
PROVIDERS: PCP Internal Medicine Adolescent Medicine; Visit Provider Internal Medicine Adolescent Medicine
DX: M25.562 Pain in left knee (principal)
CPT/HCPCS: 73562